=== PATIENT | female | born 1955 | race American Indian/Alaskan Native ===

== ENCOUNTER 2020-01-20 08:38 | Inpatient (IN) | payer OTHER ==
[2020-01-20] MEDS ORDERED: METOPROLOL TARTRATE 25 MG TAB ONE (13:53)
[2020-01-20] MEDS ORDERED: SODIUM BICARB 8.4% 50 MEQ/50 ML SYRINGE IV ONE (17:13)
[2020-01-20] MEDS ORDERED: hydrALAZINE 25 MG TAB ONE (17:13)
[2020-01-20] MEDS ORDERED: ASPIRIN 325 MG TAB ONE (17:13)
--- NOTE | 2020-01-20 20:52 | History and Physical Report ---
History of Present Illness Chief complaint: I just have not been feeling well and is hard to breathe History of present illness: 64 YO Female with HTN, MA, DM, CKD presents to ED for evaluation. Patient states that she has been "feeling sick" over the past 4 days. Patient states that she feels as if she is "being smothered". EMS was notified and upon arrival the patient was found to be in distress and subsequently transported to [facility] for further care and evaluation. Patient seen and evaluated in the emergency department. Lab and image studies reviewed. Patient was found to have hypertensive emergency with a blood pressure of 193/117, as well as acute kidney injury with acute tubular necrosis, metabolic acidosis. Nephrology team consulted in ED. Patient placed in observation status and admitted to medical floor. Renal ultrasound is ordered and pending at time of admission. Patient denies fever, chills, chest pain, palpitations, productive cough, skin rash, recent ill contacts, or known exposure to COVID-19. No prior admission for review. No medication listed at time of admission for reconciliation. Past History Past Medical History: acute MA, diabetes, hypertension, renal failure Past Surgical History: No surgical history, Other (Reviewed) Social history: single Family history: hypertension Medications and Allergies Allergies Allergy/AdvReac Type Severity Reaction Status Date / Time nifedipine Allergy Swelling Verified 01/20/20 19:55 Home Medications Medication Instructions Recorded Confirmed Last Taken Type No Known Home Medications [No 01/20/20 01/20/20 Unknown History Reported Home Medications] Review of Systems Constitutional: no weight loss, no weight gain, no chills Ears, nose, mouth and throat: no ear pain, no tinnitis, no decreased hearing, no nose pain, no nasal congestion Breasts: no change in shape Cardiovascular: no chest pain, no orthopnea, no palpitations, no edema Respiratory: shortness of breath, no cough with sputum Gastrointestinal: no nausea, no vomiting, no diarrhea, no constipation Genitourinary Female: no pelvic pain, no flank pain, no dysuria, no urinary frequency, no urgency Rectal: no pain, no incontinence, no bleeding Musculoskeletal: no neck stiffness, no shooting arm pain, no shooting leg pain Integumentary: no rash, no pruritis, no sores, no wounds, no boils Neurological: no head injury, no paralysis, no parathesias Psychiatric: no anxiety, no change in sleep habits, no insomnia, no change in libido Endocrine: no cold intolerance, no heat intolerance, no excessive thirst, no polydipsia, no polyuria Hematologic/Lymphatic: no easy bruising Allergic/Immunologic: no urticaria, no allergic rhinitis, no wheezing Exam - Constitutional Vitals: Temp Pulse Resp BP Pulse Ox 98.5 F 79 21 150/81 100 01/20/20 19:25 01/20/20 20:30 01/20/20 20:30 01/20/20 20:30 01/20/20 20:30 General appearance: Present: mild distress - EENT Eyes: Present: PERRL ENT: hearing intact, clear oral mucosa - Neck Neck: Present: supple, normal ROM - Respiratory Respiratory effort: normal Respiratory: bilateral: CTA - Cardiovascular Heart Sounds: Present: S1 & S2. Absent: rub, click - Extremities Extremities: pulses symmetrical, No edema Peripheral Pulses: within normal limits - Abdominal General gastrointestinal: Present: soft, non-tender, non-distended, normal bowel sounds Female genitourinary: Present: normal - Integumentary Integumentary: Present: clear, warm, dry - Musculoskeletal Musculoskeletal: gait normal, strength equal bilaterally - Psychiatric Psychiatric: appropriate mood/affect, intact judgment & insight - Neurologic Neurologic: CNII-XII intact, moves all extremities Assessment and Plan - Patient Problems (1) Acute kidney injury (KERMIT) with acute tubular necrosis (ATN) Current Visit: Yes Status: Acute Plan to address problem: IV fluid resuscitation therapy, monitor urine output every shift, strict I's/O, avoid nephrotoxic agents, nephrology team consulted in ED, bilateral renal ultrasound ordered and is pending at time of admission, urine sodium, urine creatinine. (2) Hypertensive emergency Current Visit: Yes Status: Acute Plan to address problem: Monitor blood pressure every shift, IV hydralazine every 6 hours as needed for systolic blood pressure greater than or equal to 155, supportive care. (3) Metabolic acidosis Current Visit: Yes Status: Acute Plan to address problem: IV bicarbonate therapy, BMP, repeat BMP in a.m. (4) Advance care planning Current Visit: Yes Status: Acute Plan to address problem: Disease education conducted, patient is full code, prognosis discussed, patient knowledges understanding and agreement with care plan. (5) Diabetes mellitus Current Visit: Yes Status: Acute Plan to address problem: Slight scale insulin therapy, Accu-Chek, hypoglycemia protocol, consistent carbohydrate diet. (6) DVT prophylaxis Current Visit: Yes Status: Acute Plan to address problem: SCD to bilateral lower extremities while in bed, patient is ambulatory.
[2020-01-20] MEDS ORDERED: ONDANSETRON 4 MG/2 ML INJ IV PRN (20:53)
[2020-01-20] MEDS ORDERED: ALBUTEROL 2.5 MG/3 ML NEBU IH PRN (20:53)
[2020-01-21] MEDS: ACETAMINOPHEN 325 MG TAB PO PRN (00:22)
[2020-01-21 07:44] LABS: Creatinine,Urine 97.8 mg/dL (0.1-20.0)
[2020-01-21 09:35] LABS: Calcium 8.5 mg/dL (8.4-10.2)
--- NOTE | 2020-01-21 12:36 | Consultation ---
History of Present Illness - Reason for Consult Consult date: 01/21/20 chronic renal failure - History of Present Illness This is a 64 year old female who presented to the E.R yesterday with a chief complaint of shortness of breath and not feeling well over the past 4 days. States feeling like she is drowning when she lays down on her back. On evaluation patient was in hypertensive Emergency state and serum creatinine was elevated at 6.0. Patient reports she saw a [employer] Machine Operator Helper in May and was told her creatinine was in the 3.0's at that time. States she never followed back up due to insurance issues and the pandemic. Patient reports that her mother and brother were on hemodialysis before they passed and that her sister and nephew are both currently on hemodialysis. States she had dialysis in 2017 when she was hospitalized at [facility] for heart attack per patient. Patient has history of Hypertension, Diabetes Mellitus and CKD. We are being consulted for management of this patient's severe renal failure. Past History Past Medical History: acute PR, diabetes, hypertension, renal failure Past Surgical History: No surgical history, Other (Reviewed) Social history: single Family history: hypertension Medications and Allergies Allergies Allergy/AdvReac Type Severity Reaction Status Date / Time nifedipine Allergy Swelling Verified 01/20/20 19:55 Home Medications Medication Instructions Recorded Confirmed Last Taken Type No Known Home Medications [No 01/20/20 01/20/20 Unknown History Reported Home Medications] Active Meds: Active Medications Acetaminophen (Tylenol) 650 mg PO Q4H PRN PRN Reason: Pain MILD(1-3)/Fever >100.5/SWENSON Last Admin: 01/21/20 00:22 Dose: 650 mg Documented by: Albuterol (Proventil) 2.5 mg IH Q4HRT PRN PRN Reason: Shortness Of Breath Ondansetron HCl (Zofran) 4 mg IV Q8H PRN PRN Reason: Nausea And Vomiting Sodium Chloride (Sodium Chloride Flush Syringe 10 Ml) 10 ml IV BID [facility] Last Admin: 01/21/20 11:22 Dose: 10 ml Documented by: Sodium Chloride (Sodium Chloride Flush Syringe 10 Ml) 10 ml IV PRN PRN PRN Reason: LINE FLUSH Review of Systems Constitutional: fatigue, no weight loss, no weight gain, no fever, no chills Ears, nose, mouth and throat: no ear pain, no ear discharge, no tinnitis, no decreased hearing, no nose pain Cardiovascular: orthopnea, shortness of breath, high blood pressure, no chest pain, no palpitations, no rapid/irregular heart beat, no edema, no syncope, no lightheadedness Respiratory: shortness of breath, no excessive sputum, no hemoptysis Gastrointestinal: no abdominal pain, no nausea, no vomiting, no diarrhea, no co nstipation, no change in bowel habits Musculoskeletal: no neck stiffness, no neck pain, no shooting arm pain, no arm numbness/tingling, no low back pain, no shooting leg pain Integumentary: no rash, no pruritis, no redness, no wounds, no jaundice Neurological: no head injury, no transient paralysis, no paralysis, no weakness, no numbness, no tingling Psychiatric: no memory loss, no change in sleep habits, no insomnia, no hypersomnia Exam - Vital Signs Vital signs: Vital Signs Temp Pulse Resp BP Pulse Ox 98.5 F 80 19 146/79 100 01/20/20 19:25 01/20/20 19:25 01/20/20 19:25 01/20/20 19:25 01/20/20 19:25 - General Appearance General appearance: well-developed, appears stated age, fatigue EENT: ATNC, PERRL, hearing intact, vision intact Neck: Present: neck supple, trachea midline Respiratory: Decreased Breath Sounds Heart: S1S2 Gastrointestinal: Present: normoactive bowel sounds Integumentary: warm and dry Neurologic: alert and oriented x3 Musculoskeletal: Present: other (No edema) Results - Lab Results 01/21/20 08:10 Most recent lab results Calcium 8.5 mg/dL (8.4-10.2) 01/21/20 08:10 Urine Creatinine 97.8 mg/dL (0.1-20.0) H 01/21/20 06:40 Urine Sodium 84 mmol/L 01/21/20 06:40 Assessment and Plan Assessment: Severe Renal Failure, possibly progressive CKD stage 5 secondary to HTN and DM, r/o obstruction S/P Hypertensive Emergency Hypertension Diabetes mellitus Plan: -Renal labs reviewed. Serum creatinine noted to be 6.0 today. Patient reports serum creatinine was in the 3.0's in May 2019 -States was on hemodialysis for 2 weeks in 2017 -On NS@ 75 ml/hr, monitor volume status -CXR-pending -Renal ultrasound ordered-pending -Obtain urine lytes, protein and eosinophil levels -Avoid nephrotoxic agents -Monitor I/O's -Renally dose medications -Obtain daily weights -Continue to monitor renal function closely, discussed with patient that given her advanced renal disease, risk factors and medical history, she will likely need hemodialysis in the very near future if renal function does not improve.
[2020-01-21] MEDS ORDERED: DEXTROSE 50% IN WATER (25GM) 50 ML SYRINGE IV PRN (16:48)
--- NOTE | 2020-01-21 16:55 | Progress Note ---
<RIANNA BARBOSA - Last Filed: 01/21/20 17:09> Assessment and Plan - Patient Problems (1) Acute kidney injury (KERMIT) with acute tubular necrosis (ATN) Current Visit: Yes Status: Acute Plan to address problem: Admitting creatinine 6 Nephrology consulted in the ED Renal ultrasound pending Per nephrology: Patient last saw auto bumper mechanic in May and told her creatinine was in the 3 range, states she had dialysis insulin 17 for 2 weeks Started on gentle IV hydration Avoid nephrotoxic medications Strict intake and output Daily weights (2) Hypertensive emergency Current Visit: Yes Status: Acute Plan to address problem: Presented to the ED with a blood pressure of 193/117 Blood pressure monitor per protocol 01/20 started on beta-alex (3) Diabetes mellitus Current Visit: Yes Status: Acute Plan to address problem: SSI CC renal diet Accu-Cheks AC at bedtime 01/20 Hemoglobin A1c pending (4) Metabolic acidosis Current Visit: Yes Status: Acute Plan to address problem: CO2 20 Gentle IV hydration Trend BMP (5) DVT prophylaxis Current Visit: Yes Status: Acute Plan to address problem: SCDs to bilateral lower extremities while in bed Heparin subcu History Interval history: 64 YO Female with HTN, HI, DM, CKD presented on 01/19 with complaint of "feeling sick" over the past 4 days and feeding "being smothered". Patient was found to have hypertensive emergency with a blood pressure of 193/117, severe renal disease with a creatinine of 6 and metabolic acidosis. Nephrology team consulted in ED. No acute events reported overnight. Patient seen by nephrology for further renal work-up and initiated on beta-alex for hypertension. Hospitalist Physical - Constitutional Vitals: Temp Pulse Resp BP Pulse Ox 98.5 F 80 20 164/95 99 01/21/20 05:15 01/21/20 05:15 01/21/20 05:15 01/21/20 05:15 01/21/20 09:10 General appearance: Present: no acute distress, mild distress - EENT Eyes: Present: PERRL, EOM intact ENT: hearing intact, clear oral mucosa - Neck Neck: Present: supple, normal ROM - Respiratory Respiratory effort: normal Respiratory: bilateral: diminished - Cardiovascular Rhythm: regular Heart Sounds: Present: S1 & S2. Absent: systolic murmur - Extremities Extremities: no ischemia, pulses intact, pulses symmetrical, No edema, normal temperature, normal color, Full ROM Peripheral Pulses: within normal limits - Abdominal General gastrointestinal: soft, non-tender, non-distended, normal bowel sounds - Integumentary Integumentary: Present: warm, dry - Psychiatric Psychiatric: cooperative - Neurologic Neurologic: CNII-XII intact, no focal deficits, moves all extremities Results - Labs CBC & Chem 7: 01/21/20 08:10 Labs: Laboratory Last Values Sodium 140 mmol/L (137-145) 01/21/20 08:10 Potassium 4.2 mmol/L (3.6-5.0) 01/21/20 08:10 Chloride 107.5 mmol/L (98-107) H 01/21/20 08:10 Carbon Dioxide 20 mmol/L (22-30) L 01/21/20 08:10 Anion Gap 17 mmol/L 01/21/20 08:10 BUN 46 mg/dL (7-17) H 01/21/20 08:10 Creatinine 6.0 mg/dL (0.6-1.2) H 01/21/20 08:10 Estimated GFR 9 ml/min 01/21/20 08:10 BUN/Creatinine Ratio 8 % 01/21/20 08:10 Glucose 116 mg/dL (65-100) H 01/21/20 08:10 Calcium 8.5 mg/dL (8.4-10.2) 01/21/20 08:10 Urine Creatinine 97.8 mg/dL (0.1-20.0) H 01/21/20 06:40 Urine Sodium 84 mmol/L 01/21/20 06:40 Thayer/IV: Voiding Method Toilet IV Catheter Type [Left Hand] INT / Saline Lock Active Medications - Current Medications Current Medications: Generic Name Dose Route Start Last Admin Trade Name Freq PRN Reason Stop Dose Admin Acetaminophen 650 mg 01/20/20 20:53 01/21/20 00:22 Tylenol PO 650 mg Q4H PRN Administration Pain MILD(1-3)/Fever >100.5/SWENSON Albuterol 2.5 mg 01/20/20 20:53 Proventil IH Q4HRT PRN Shortness Of Breath Dextrose 50 ml 01/21/20 16:48 D50w (25gm) Syringe IV Q30MIN PRN Hypoglycemia Protocol Sodium Chloride 1,000 mls @ 75 mls/hr 01/21/20 13:00 Nacl 0.9% 1000 Ml IV 01/23/20 02:19 DIRECT GERONIMO Insulin Human Lispro 0 unit 01/21/20 22:00 Humalog SUB-Q ACHS [facility] Protocol Metoprolol Tartrate 12.5 mg 01/21/20 22:00 Metoprolol PO BID GERONIMO Ondansetron HCl 4 mg 01/20/20 20:53 Zofran IV Q8H PRN Nausea And Vomiting Sodium Chloride 10 ml 01/20/20 22:00 01/21/20 11:22 Sodium Chloride Flush Syringe 10 Ml IV 10 ml BID GERONIMO Administration Sodium Chloride 10 ml 01/20/20 20:53 Sodium Chloride Flush Syringe 10 Ml IV PRN PRN LINE FLUSH <ISAIAS GEE - Last Filed: 01/22/20 07:23> Assessment and Plan Assessment and plan: I saw and evaluated the patient. I agree with the findings and the plan of care as documented in the Nurse Practitioner's~note, with the following corrections and additions. Hospitalist Physical - Constitutional Vitals: Temp Pulse Resp BP Pulse Ox 98.7 F 71 20 153/88 99 01/22/20 06:21 01/22/20 06:21 01/22/20 06:21 01/22/20 06:21 01/22/20 06:21 Results - Labs CBC & Chem 7: 01/21/20 08:10 Labs: Laboratory Last Values Sodium 140 mmol/L (137-145) 01/21/20 08:10 Potassium 4.2 mmol/L (3.6-5.0) 01/21/20 08:10 Chloride 107.5 mmol/L (98-107) H 01/21/20 08:10 Carbon Dioxide 20 mmol/L (22-30) L 01/21/20 08:10 Anion Gap 17 mmol/L 01/21/20 08:10 BUN 46 mg/dL (7-17) H 01/21/20 08:10 Creatinine 6.0 mg/dL (0.6-1.2) H 01/21/20 08:10 Estimated GFR 9 ml/min 01/21/20 08:10 BUN/Creatinine Ratio 8 % 01/21/20 08:10 Glucose 116 mg/dL (65-100) H 01/21/20 08:10 POC Glucose 141 mg/dL (70-105) H 01/21/20 23:36 Hemoglobin A1c 6.2 % (4-6) H 01/21/20 20:43 Calcium 8.5 mg/dL (8.4-10.2) 01/21/20 08:10 Urine Eosinophils >5% (None Seen) 01/22/20 01:00 Urine Creatinine 115.9 mg/dL (0.1-20.0) H 01/22/20 01:00 Protein/Creatinin Ratio 1.28 01/22/20 01:00 Urine Sodium 84 mmol/L 01/21/20 06:40 Urine Total Protein 148 mg/dL (5-11.8) H 01/22/20 01:00 Thayer/IV: Voiding Method Toilet IV Catheter Type [Left Hand] INT / Saline Lock Active Medications - Current Medications Current Medications: Generic Name Dose Route Start Last Admin Trade Name Freq PRN Reason Stop Dose Admin Acetaminophen 650 mg 01/20/20 20:53 01/21/20 00:22 Tylenol PO 650 mg Q4H PRN Administration Pain MILD(1-3)/Fever >100.5/SWENSON Albuterol 2.5 mg 01/20/20 20:53 Proventil IH Q4HRT PRN Shortness Of Breath Dextrose 50 ml 01/21/20 16:48 D50w (25gm) Syringe IV Q30MIN PRN Hypoglycemia Protocol Heparin Sodium (Porcine) 5,000 unit 01/21/20 22:00 01/21/20 22:29 Heparin SUB-Q 5,000 unit Q12HR GERONIMO Administration Sodium Chloride 1,000 mls @ 75 mls/hr 01/21/20 13:00 01/22/20 06:27 Nacl 0.9% 1000 Ml IV 01/23/20 02:19 75 mls/hr DIRECT GERONIMO Administration Insulin Human Lispro 0 unit 01/21/20 17:00 Humalog SUB-Q ACHS GERONIMO Protocol Metoprolol Tartrate 12.5 mg 01/21/20 22:00 01/21/20 22:29 Metoprolol PO 12.5 mg BID GERONIMO Administration Ondansetron HCl 4 mg 01/20/20 20:53 Zofran IV Q8H PRN Nausea And Vomiting Sodium Chloride 10 ml 01/20/20 22:00 01/21/20 22:30 Sodium Chloride Flush Syringe 10 Ml IV 10 ml BID GERONIMO Administration Sodium Chloride 10 ml 01/20/20 20:53 Sodium Chloride Flush Syringe 10 Ml IV PRN PRN LINE FLUSH
[2020-01-21] MEDS: SODIUM CHLORIDE 0.9% 1000 ML 1,000 ML IV SCH (17:08)
[2020-01-21] MEDS: HEPARIN 5,000 UNIT/1 ML VIAL SUB-Q SCH (22:29)
[2020-01-21] MEDS: METOPROLOL TARTRATE 25 MG TAB PO SCH (22:29)
[2020-01-22 03:18] LABS: Creatinine,Urine 115.9 mg/dL (0.1-20.0); Protein/Creatinine Ratio,Urine 1.28
[2020-01-22] MEDS: SODIUM CHLORIDE 0.9% 1000 ML 1,000 ML IV SCH (06:27)
[2020-01-22] MEDS: INSULIN LISPRO 100 UNIT/ML VIAL 3 mL SUB-Q SCH ×4 (07:59→22:10)
[2020-01-22 08:24] LABS: Hematocrit 33.5 % (30.3-42.9); Hemoglobin 10.7 gm/dl (10.1-14.3); Mean Corpuscular HGB Conc 32 % (30-34); Mean Corpuscular Volume 91 fl (79-97); Platelet Count 189 K/mm3 (140-440); Red Blood Count 3.67 M/mm3 (3.65-5.03)
[2020-01-22 08:55] LABS: Calcium 8.2 mg/dL (8.4-10.2)
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
[2020-01-22 10:36] LABS: Hepatitis B Surface Antigen Non-Reactive (Negative); Hepatitis C Virus Antibody Non-Reactive (NonReactive)
[2020-01-22] MEDS: METOPROLOL TARTRATE 25 MG TAB PO SCH ×2 (10:54→22:07)
[2020-01-22] MEDS: HEPARIN 5,000 UNIT/1 ML VIAL SUB-Q SCH ×2 (10:55→22:08)
--- NOTE | 2020-01-22 13:48 | Progress Note ---
Assessment and Plan Severe Renal Failure, possibly progressive CKD stage 5 secondary to HTN and DM, r/o obstruction S/P Hypertensive Emergency Hypertension Diabetes mellitus Plan: -stable kidney function -States was on hemodialysis for 2 weeks in 2017 -will d/c NS -zohra start Bicitra 30 TID for metabolic acidosis -Avoid nephrotoxic agents -Monitor I/O's -Renally dose medications -Obtain daily weights -Continue to monitor renal function closely, discussed with patient that given her advanced renal disease, risk factors and medical history, she will likely need hemodialysis in the very near future if renal function does not improve. Subjective Date of service: 01/22/20 Principal diagnosis: CKD stage V Interval history: weak but comfortable Objective - Vital Signs Vital signs: Vital Signs - 12hr 01/22/20 01/22/20 06:21 10:54 Temperature 98.7 F Pulse Rate 71 75 Respiratory 20 Rate Blood Pressure 153/88 152/105 O2 Sat by Pulse 99 Oximetry - General Appearance General appearance: well-developed, well-nourished, appears stated age EENT: ATNC, PERRL, mucous membranes moist Neck: no JVD, no carotid bruit Respiratory: Present: Clear to Ascultation. Absent: Rales, Ronchi Cardiology: regular, S1S2 Gastrointestinal: normoactive bowel sounds, no tenderness, no distended Integumentary: no rash, warm and dry Neurologic: no focal deficit, no asterixis, alert and oriented x3 Musculoskeletal: other (no edema in BLE) Psychiatric: mood/affect appropriate, cooperative - Lab 01/22/20 08:00 01/22/20 08:00 Most recent lab results Calcium 8.2 mg/dL (8.4-10.2) L 01/22/20 08:00 Phosphorus 3.20 mg/dL (2.5-4.5) 01/22/20 08:00 Urine Creatinine 115.9 mg/dL (0.1-20.0) H 01/22/20 01:00 Urine Sodium 84 mmol/L 01/21/20 06:40 Urine Total Protein 148 mg/dL (5-11.8) H 01/22/20 01:00 Medications & Allergies - Medications Allergies/Adverse Reactions: Allergies nifedipine Allergy (Verified 01/20/20 19:55) Swelling Home Medications: Home Medications Medication Instructions Recorded Confirmed Last Taken Type No Known Home Medications [No 01/20/20 01/20/20 Unknown History Reported Home Medications] Active Medications: Generic Name Dose Route Start Last Admin Trade Name Freq PRN Reason Stop Dose Admin Acetaminophen 650 mg 01/20/20 20:53 01/21/20 00:22 Tylenol PO 650 mg Q4H PRN Administration Pain MILD(1-3)/Fever >100.5/SWENSON Albuterol 2.5 mg 01/20/20 20:53 Proventil IH Q4HRT PRN Shortness Of Breath Dextrose 50 ml 01/21/20 16:48 D50w (25gm) Syringe IV Q30MIN PRN Hypoglycemia Protocol Heparin Sodium (Porcine) 5,000 unit 01/21/20 22:00 01/22/20 10:55 Heparin SUB-Q 5,000 unit Q12HR GERONIMO Administration Hydralazine HCl 50 mg 01/22/20 14:00 Apresoline PO Q8HR GERONIMO Sodium Chloride 1,000 mls @ 75 mls/hr 01/21/20 13:00 01/22/20 06:27 Nacl 0.9% 1000 Ml IV 01/23/20 02:19 75 mls/hr DIRECT GERONIMO Administration Insulin Human Lispro 0 unit 01/21/20 17:00 01/22/20 13:45 Humalog SUB-Q Not Given ACHS GERONIMO Protocol Metoprolol Tartrate 12.5 mg 01/21/20 22:00 01/22/20 10:54 Metoprolol PO 12.5 mg BID GERONIMO Administration Ondansetron HCl 4 mg 01/20/20 20:53 Zofran IV Q8H PRN Nausea And Vomiting Sodium Chloride 10 ml 01/20/20 22:00 01/22/20 10:56 Sodium Chloride Flush Syringe 10 Ml IV 10 ml BID GERONIMO Administration Sodium Chloride 10 ml 01/20/20 20:53 Sodium Chloride Flush Syringe 10 Ml IV PRN PRN LINE FLUSH
[2020-01-22] MEDS: hydrALAZINE 25 MG TAB PO SCH ×2 (14:09→22:08)
--- NOTE | 2020-01-22 15:06 | Progress Note ---
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 and told her creatinine was in the 3 range, states she had dialysis in 2017 for 2 weeks Started on gentle IV hydration, which was discontinued on 01/21 Avoid nephrotoxic medications Strict intake and output Daily weights 01/20 calculated FENa from urine studies is greater than 3%, consistent with prerenal cause (3) Hypertensive emergency Current Visit: Yes Status: Acute Plan to address problem: Presented to the ED with a blood pressure of 193/117 Blood pressure monitor per protocol 01/20 started on beta-alex 01/21 given complaints of feeling "strangled when laying down" she was started on hydralazine 50 every 8 01/21 echocardiogram ordered given history of UT (4) Diabetes mellitus Current Visit: Yes Status: Acute Plan to address problem: SSI CC renal diet Accu-Cheks AC at bedtime 01/20 Hemoglobin A1c 6.2 (5) Metabolic acidosis Current Visit: Yes Status: Acute Plan to address problem: CO2 20, 01/21 CO2 16 Gentle IV hydration, DC 01/21 Trend BMP Started on Bicitra 30 TID for metabolic acidosis by nephrology on 01/21 (6) DVT prophylaxis Current Visit: Yes Status: Acute Plan to address problem: SCDs to bilateral lower extremities while in bed Heparin subcu History Interval history: 64 YO Female with HTN, UT, DM, CKD presented on 01/19 with complaint of "feeling sick" over the past 4 days and feeding "being smothered". Patient was found to have hypertensive emergency with a blood pressure of 193/117, severe renal disease with a creatinine of 6 and metabolic acidosis. Nephrology team consulted in ED. Patient reports feeling " like something smothering me when I lay down" patient was started on an afterload reduction today and an echocardiogram was ordered. 01/20: renal US pending, urine studies ordered, initiated BB Hospitalist Physical - Constitutional Vitals: Temp Pulse Resp BP Pulse Ox 98.7 F 75 20 152/105 99 01/22/20 06:21 01/22/20 10:54 01/22/20 06:21 01/22/20 10:54 01/22/20 06:21 General appearance: Present: no acute distress, mild distress, obese - EENT Eyes: Present: PERRL, EOM intact ENT: hearing intact, clear oral mucosa - Neck Neck: Present: supple, normal ROM - Respiratory Respiratory effort: normal Respiratory: bilateral: other (Fine crackles) - Cardiovascular Rhythm: regular Heart Sounds: Present: S1 & S2. Absent: systolic murmur, diastolic murmur - Extremities Extremities: no ischemia, pulses intact, pulses symmetrical, No edema, normal temperature, normal color, Full ROM Peripheral Pulses: within normal limits - Abdominal General gastrointestinal: soft, non-tender, non-distended, normal bowel sounds - Integumentary Integumentary: Present: clear, warm, dry - Psychiatric Psychiatric: appropriate mood/affect, cooperative - Neurologic Neurologic: CNII-XII intact, no focal deficits, moves all extremities - Allied Health Allied health notes reviewed: nursing Results - Labs CBC & Chem 7: 01/22/20 08:00 01/22/20 08:00 Labs: Laboratory Last Values WBC 6.0 K/mm3 (4.5-11.0) 01/22/20 08:00 RBC 3.67 M/mm3 (3.65-5.03) 01/22/20 08:00 Hgb 10.7 gm/dl (10.1-14.3) 01/22/20 08:00 Hct 33.5 % (30.3-42.9) 01/22/20 08:00 MCV 91 fl (79-97) 01/22/20 08:00 MCH 29 pg (28-32) 01/22/20 08:00 MCHC 32 % (30-34) 01/22/20 08:00 RDW 16.0 % (13.2-15.2) H 01/22/20 08:00 Plt Count 189 K/mm3 (140-440) 01/22/20 08:00 Sodium 137 mmol/L (137-145) 01/22/20 08:00 Potassium 4.7 mmol/L (3.6-5.0) 01/22/20 08:00 Chloride 107.9 mmol/L (98-107) H 01/22/20 08:00 Carbon Dioxide 16 mmol/L (22-30) L 01/22/20 08:00 Anion Gap 18 mmol/L 01/22/20 08:00 BUN 45 mg/dL (7-17) H 01/22/20 08:00 Creatinine 5.5 mg/dL (0.6-1.2) H 01/22/20 08:00 Estimated GFR 9 ml/min 01/22/20 08:00 BUN/Creatinine Ratio 8 % 01/22/20 08:00 Glucose 167 mg/dL (65-100) H 01/22/20 08:00 POC Glucose 133 mg/dL (70-105) H 01/22/20 11:22 Hemoglobin A1c 6.2 % (4-6) H 01/21/20 20:43 Calcium 8.2 mg/dL (8.4-10.2) L 01/22/20 08:00 Phosphorus 3.20 mg/dL (2.5-4.5) 01/22/20 08:00 PTH Intact 1332 pg/mL (15-65) H 01/22/20 08:00 Urine Eosinophils >5% (None Seen) 01/22/20 01:00 Urine Creatinine 115.9 mg/dL (0.1-20.0) H 01/22/20 01:00 Protein/Creatinin Ratio 1.28 01/22/20 01:00 Urine Sodium 84 mmol/L 01/21/20 06:40 Urine Total Protein 148 mg/dL (5-11.8) H 01/22/20 01:00 Hepatitis A IgM Ab Non-reactive (NonReactive) 01/22/20 08:00 Hep Bs Antigen Non-reactive (Negative) 01/22/20 08:00 Hep B Core IgM Ab Non-reactive (NonReactive) 01/22/20 08:00 Hepatitis C Antibody Non-reactive (NonReactive) 01/22/20 08:00 Thayer/IV: Voiding Method Toilet IV Catheter Type [Left Hand] INT / Saline Lock Active Medications - Current Medications Current Medications: Generic Name Dose Route Start Last Admin Trade Name Freq PRN Reason Stop Dose Admin Acetaminophen 650 mg 01/20/20 20:53 01/21/20 00:22 Tylenol PO 650 mg Q4H PRN Administration Pain MILD(1-3)/Fever >100.5/SWENSON Albuterol 2.5 mg 01/20/20 20:53 Proventil IH Q4HRT PRN Shortness Of Breath Citric Acid/Sodium Citrate 30 ml 01/22/20 14:00 Bicitra PO TID GERONIMO Dextrose 50 ml 01/21/20 16:48 D50w (25gm) Syringe IV Q30MIN PRN Hypoglycemia Protocol Heparin Sodium (Porcine) 5,000 unit 01/21/20 22:00 01/22/20 10:55 Heparin SUB-Q 5,000 unit Q12HR GERONIMO Administration Hydralazine HCl 50 mg 01/22/20 14:00 01/22/20 14:09 Apresoline PO 50 mg Q8HR GERONIMO Administration Insulin Human Lispro 0 unit 01/21/20 17:00 01/22/20 13:45 Humalog SUB-Q Not Given ACHS GERONIMO Protocol Metoprolol Tartrate 12.5 mg 01/21/20 22:00 01/22/20 10:54 Metoprolol PO 12.5 mg BID GERONIMO Administration Ondansetron HCl 4 mg 01/20/20 20:53 Zofran IV Q8H PRN Nausea And Vomiting Sodium Chloride 10 ml 01/20/20 22:00 01/22/20 10:56 Sodium Chloride Flush Syringe 10 Ml IV 10 ml BID GERONIMO Administration Sodium Chloride 10 ml 01/20/20 20:53 Sodium Chloride Flush Syringe 10 Ml IV PRN PRN LINE FLUSH <ISAIAS GEE - Last Filed: 01/23/20 17:44> Assessment and Plan Assessment and plan: I saw and evaluated the patient. I agree with the findings and the plan of care as documented in the Nurse Practitioner's~note, with the following corrections and additions. Hospitalist Physical - Constitutional Vitals: Temp Pulse Resp BP Pulse Ox 97.5 F L 84 16 132/72 100 01/23/20 15:00 01/23/20 17:30 01/23/20 15:00 01/23/20 17:30 01/23/20 11:56 Results - Labs CBC & Chem 7: 01/22/20 08:00 01/23/20 07:35 Labs: Laboratory Last Values WBC 6.0 K/mm3 (4.5-11.0) 01/22/20 08:00 RBC 3.67 M/mm3 (3.65-5.03) 01/22/20 08:00 Hgb 10.7 gm/dl (10.1-14.3) 01/22/20 08:00 Hct 33.5 % (30.3-42.9) 01/22/20 08:00 MCV 91 fl (79-97) 01/22/20 08:00 MCH 29 pg (28-32) 01/22/20 08:00 MCHC 32 % (30-34) 01/22/20 08:00 RDW 16.0 % (13.2-15.2) H 01/22/20 08:00 Plt Count 189 K/mm3 (140-440) 01/22/20 08:00 Sodium 138 mmol/L (137-145) 01/23/20 07:35 Potassium 4.6 mmol/L (3.6-5.0) 01/23/20 07:35 Chloride 104.5 mmol/L (98-107) 01/23/20 07:35 Carbon Dioxide 21 mmol/L (22-30) L 01/23/20 07:35 Anion Gap 17 mmol/L 01/23/20 07:35 BUN 46 mg/dL (7-17) H 01/23/20 07:35 Creatinine 5.7 mg/dL (0.6-1.2) H 01/23/20 07:35 Estimated GFR 9 ml/min 01/23/20 07:35 BUN/Creatinine Ratio 8 % 01/23/20 07:35 Glucose 107 mg/dL (65-100) H 01/23/20 07:35 POC Glucose 157 mg/dL (70-105) H 01/23/20 17:28 Hemoglobin A1c 6.2 % (4-6) H 01/21/20 20:43 Calcium 8.6 mg/dL (8.4-10.2) 01/23/20 07:35 Phosphorus 3.20 mg/dL (2.5-4.5) 01/22/20 08:00 NT-Pro-B Natriuret Pep 05282 pg/mL (0-900) H 01/22/20 08:00 PTH Intact 1332 pg/mL (15-65) H 01/22/20 08:00 Urine Eosinophils >5% (None Seen) 01/22/20 01:00 Urine Creatinine 115.9 mg/dL (0.1-20.0) H 01/22/20 01:00 Protein/Creatinin Ratio 1.28 01/22/20 01:00 Urine Sodium 84 mmol/L 01/21/20 06:40 Urine Total Protein 148 mg/dL (5-11.8) H 01/22/20 01:00 Hepatitis A IgM Ab Non-reactive (NonReactive) 01/22/20 08:00 Hep Bs Antigen Non-reactive (Negative) 01/22/20 08:00 Hep B Core IgM Ab Non-reactive (NonReactive) 01/22/20 08:00 Hepatitis C Antibody Non-reactive (NonReactive) 01/22/20 08:00 - Diagnostic Impressions Diagnostic Impressions: Echocardiogram 01/22/20 11:18 Transthoracic Echocardiogram Indication: SOB BP: 152/105 HR: 69 Conclusions *The left ventricular chamber size is severely dilated. *Mild to moderate concentric left ventricular hypertrophy is observed. *Global left ventricular systolic function is severely decreased. *The estimated ejection fraction is 15-20%. *The left atrium is moderately dilated. *There is moderate to severe mitral regurgitation. *There is mild tricuspid regurgitation. *There is evidence of moderate pulmonary hypertension. *The right ventricular systolic pressure is calculated at 48 mmHg. Findings Left Ventricle: The left ventricular chamber size is severely dilated. Mild to moderate concentric left ventricular hypertrophy is observed. Global left ventricular systolic function is severely decreased. The estimated ejection fraction is 15-20%. Left Atrium: The left atrium is moderately dilated. Right Ventricle: The right ventricular cavity size is normal. The right ventricular global systolic function is normal. Right Atrium: The right atrial cavity size is normal. Aortic Valve: The aortic valve is trileaflet. The aortic valve leaflets are moderately thickened. There is trace of aortic regurgitation. There is no evidence of aortic stenosis. Mitral Valve: The mitral valve leaflets are mildly thickened. There is moderate to severe mitral regurgitation. There is no evidence of mitral stenosis. Tricuspid Valve: There is mild tricuspid regurgitation. The right ventricular systolic pressure is calculated at 48 mmHg. There is evidence of moderate pulmonary hypertension. Pulmonic Valve: There is mild pulmonic regurgitation. Pericardium: There is no pericardial effusion. Aorta: There is no dilatation of the ascending aorta. There is no dilatation of the aortic root. Venous: The inferior vena cava appears normal in size. Measurements Chambers 2D Name Value Normal Range IVSd (2D) 1.12 cm (0.6 - 1.1) LVPWd (2D) 1.17 cm (0.6 - 1.1) LVIDd (2D) 5.92 cm (3.7 - 5.6) LVIDs (2D) 4.89 cm (2 - 3.8) LV FS (2D) 17.48 % - EF Teichholz (2D) 35.83 % - Ao root diameter (2D) 3.05 cm (2 - 3.7) Volumes/Mass Name Value Normal Range LA ESV SP 4CH (A/L) 60.53 ml - LA ESV SP 2CH (A/L) 81.81 ml - LA ESV BP (A/L) 73.51 ml - LA ESV BP (A/L) index 39.31 ml/m2 - LA ESV SP 4CH (MOD) 57.3 ml - LA ESV SP 2CH (MOD) 76.37 ml - LA ESV BP (MOD) 68.95 ml - LA ESV BP (MOD) index 36.87 ml/m2 - Diastolic/Systolic Function Name Value Normal Range MV E-wave Vmax 0.9 m/sec - MV deceleration time 181.16 msec - MV A-wave Vmax 0.82 m/sec - MV E:A ratio 1.09 ratio - Aortic Valve Name Value Normal Range AV Vmax 1.5 m/sec - AV VTI 26.98 cm - AV peak gradient 8.99 mmHg - AV mean gradient 4.78 mmHg - LVOT diameter 2.01 cm - LVOT Vmax 0.78 m/sec - LVOT VTI 15.26 cm - LVOT peak gradient 2.43 mmHg - LVOT mean gradient 1.57 mmHg - SV LVOT 48.18 ml - ANABELLA (continuity Vmax) 1.64 cm2 - ANABELLA (continuity VTI) 1.79 cm2 - Mitral Valve Name Value Normal Range MR Vmax 5.58 m/sec - MR VTI 196.54 cm - Tricuspid Valve Name Value Normal Range TR Vmax 3.18 m/sec - TR peak gradient 40 mmHg - RAP 3 mmHg - RVSP 48 mmHg - IVC diameter 2.12 cm (1.2 - 2.3) Pulmonic Valve/Qp:Qs Name Value Normal Range PV Vmax 0.77 m/sec - PV peak gradient 2.35 mmHg - DE end-diastolic Vmax 1.29 m/sec - PV acceleration time 87.54 msec - Thayer/IV: Voiding Method Toilet IV Catheter Type [Left Hand] INT / Saline Lock Active Medications - Current Medications Current Medications: Generic Name Dose Route Start Last Admin Trade Name Freq PRN Reason Stop Dose Admin Acetaminophen 650 mg 01/20/20 20:53 01/23/20 15:05 Tylenol PO 650 mg Q4H PRN Administration Pain MILD(1-3)/Fever >100.5/SWENSON Albuterol 2.5 mg 01/20/20 20:53 Proventil IH Q4HRT PRN Shortness Of Breath Aspirin 81 mg 01/23/20 14:00 01/23/20 15:05 Halfprin Ec PO 81 mg QDAY GERONIMO Administration Carvedilol 6.25 mg 01/23/20 14:00 01/23/20 17:30 Coreg PO 6.25 mg BID GERONIMO Administration Citric Acid/Sodium Citrate 30 ml 01/22/20 14:00 01/23/20 15:05 Bicitra PO 30 ml TID GERONIMO Administration Dextrose 50 ml 01/21/20 16:48 D50w (25gm) Syringe IV Q30MIN PRN Hypoglycemia Protocol Furosemide 20 mg 01/23/20 15:00 01/23/20 15:30 Lasix IV 20 mg DAILY@0600 GERONIMO Administration Heparin Sodium (Porcine) 5,000 unit 01/21/20 22:00 01/23/20 10:22 Heparin SUB-Q 5,000 unit Q12HR GERONIMO Administration Milrinone Lactate/Dextrose 20 mg in 100 mls @ 9.169 mls/hr 01/23/20 15:00 Milrinone-D5w 20 Mg/100 Ml IV 01/26/20 14:59 TITR GERONIMO 0.375 MCG/KG/MIN Insulin Human Lispro 0 unit 01/21/20 17:00 01/23/20 17:30 Humalog SUB-Q Not Given ACHS GERONIMO Protocol Isosorbide Dinitrate 20 mg 01/23/20 14:00 01/23/20 17:30 Isordil PO 20 mg Q8HR GERONIMO Administration Ondansetron HCl 4 mg 01/20/20 20:53 01/23/20 03:23 Zofran IV 4 mg Q8H PRN Administration Nausea And Vomiting Sodium Chloride 10 ml 01/20/20 22:00 01/23/20 10:23 Sodium Chloride Flush Syringe 10 Ml IV 10 ml BID GERONIMO Administration Sodium Chloride 10 ml 01/20/20 20:53 Sodium Chloride Flush Syringe 10 Ml IV PRN PRN LINE FLUSH
[2020-01-22] MEDS: BICITRA ORAL LIQD 30ML PO SCH ×2 (15:47→20:52)
[2020-01-23] MEDS: ACETAMINOPHEN 325 MG TAB PO PRN ×2 (03:22→15:05)
[2020-01-23] MEDS: hydrALAZINE 25 MG TAB PO SCH ×2 (05:30→15:05)
[2020-01-23 08:40] LABS: Calcium 8.6 mg/dL (8.4-10.2)
[2020-01-23] MEDS: BICITRA ORAL LIQD 30ML PO SCH ×3 (08:51→22:55)
[2020-01-23] MEDS: INSULIN LISPRO 100 UNIT/ML VIAL 3 mL SUB-Q SCH ×4 (08:52→22:55)
--- NOTE | 2020-01-23 09:41 | Consultation ---
History of Present Illness Consult date: 01/23/20 Consult reason: congestive heart failure History of present illness: This is a 64-year old F who is admitted with shortness of breath, volume ove rload and renal insufficiency with a creatinine of 6.0 on presentation. Nephrology is following but there are no plans for dialysis. A cardiac consultation has been requested for CHF. Patient reports progressive shortness of breath. Denies chest pain, denies palpitations and denies lower extremity. There was no syncope. Chest x-ray reports no evidence of interstitial edema. ECG shows sinus rhythm, PACs, with a left bundle branch block. There is no prior ECG available for comparison. In 2017, patient was hospitalized at [facility] for chronic kidney disease and received transient dialysis. She also had a lexiscan thallium stress test that reports breast attenuation, no reversible ischemia with an ejection fraction of 73%. Co-morbidities includes hypertension and diabetes. She is not taking any medications and has not seen a physician in several months due to lack of insurance. Past History Past Medical History: diabetes, hypertension, renal failure Social history: single Family history: hypertension Medications and Allergies Allergies Allergy/AdvReac Type Severity Reaction Status Date / Time nifedipine Allergy Swelling Verified 01/20/20 19:55 Home Medications Medication Instructions Recorded Confirmed Last Taken Type No Known Home Medications [No 01/20/20 01/20/20 Unknown History Reported Home Medications] Active Meds: Active Medications Acetaminophen (Tylenol) 650 mg PO Q4H PRN PRN Reason: Pain MILD(1-3)/Fever >100.5/SWENSON Last Admin: 01/23/20 03:22 Dose: 650 mg Documented by: Albuterol (Proventil) 2.5 mg IH Q4HRT PRN PRN Reason: Shortness Of Breath Citric Acid/Sodium Citrate (Bicitra) 30 ml PO TID GERONIMO Last Admin: 01/23/20 08:51 Dose: 30 ml Documented by: Dextrose (D50w (25gm) Syringe) 50 ml IV Q30MIN PRN; Protocol PRN Reason: Hypoglycemia Heparin Sodium (Porcine) (Heparin) 5,000 unit SUB-Q Q12HR GERONIMO Last Admin: 01/22/20 22:08 Dose: 5,000 unit Documented by: Hydralazine HCl (Apresoline) 50 mg PO Q8HR GERONIMO Last Admin: 01/23/20 05:30 Dose: 50 mg Documented by: Insulin Human Lispro (Humalog) 0 unit SUB-Q [facility]S [facility]; Protocol Last Admin: 01/23/20 08:52 Dose: Not Given Documented by: Metoprolol Tartrate (Metoprolol) 12.5 mg PO BID [facility] Last Admin: 01/22/20 22:07 Dose: 12.5 mg Documented by: Ondansetron HCl (Zofran) 4 mg IV Q8H PRN PRN Reason: Nausea And Vomiting Last Admin: 01/23/20 03:23 Dose: 4 mg Documented by: Sodium Chloride (Sodium Chloride Flush Syringe 10 Ml) 10 ml IV BID [facility] Last Admin: 01/22/20 22:10 Dose: 10 ml Documented by: Sodium Chloride (Sodium Chloride Flush Syringe 10 Ml) 10 ml IV PRN PRN PRN Reason: LINE FLUSH Physical Examination Vital Signs Temp Pulse Resp BP Pulse Ox 98.5 F 80 19 146/79 100 01/20/20 19:25 01/20/20 19:25 01/20/20 19:25 01/20/20 19:25 01/20/20 19:25 General appearance: no acute distress HEENT: Positive: PERRL Neck: Positive: trachea midline Cardiac: Positive: Reg Rate and Rhythm Neuro: Positive: Grossly Intact Extremities: Absent: edema Results 01/22/20 08:00 01/23/20 07:35 Comprehensive Metabolic Panel 01/23/20 Range/Units 07:35 Sodium 138 (137-145) mmol/L Potassium 4.6 (3.6-5.0) mmol/L Chloride 104.5 (98-107) mmol/L Carbon Dioxide 21 L (22-30) mmol/L BUN 46 H (7-17) mg/dL Creatinine 5.7 H (0.6-1.2) mg/dL Glucose 107 H (65-100) mg/dL Calcium 8.6 (8.4-10.2) mg/dL Assessment and Plan Volume overload Chronic kidney disease Hypertension Diabetes LBBB, uncertain chronicity Will obtain an echocardiogram for LVEF assessment.
--- NOTE | 2020-01-23 09:52 | Progress Note ---
Assessment and Plan Severe Renal Failure, possibly progressive CKD stage 5 secondary to HTN and DM, r/o obstruction S/P Hypertensive Emergency Hypertension Diabetes mellitus Plan: -nio indication for HD -cont Bicitra 30 TID for metabolic acidosis -Avoid nephrotoxic agents -Monitor I/O's -Renally dose medications -Obtain daily weights - can be discharged from renal standpoint, to be followed in 1-2 weeks in office Subjective Date of service: 01/23/20 Principal diagnosis: CKD stage V Interval history: breathing is better Objective - Vital Signs Vital signs: Vital Signs - 12hr 01/22/20 01/22/20 01/22/20 22:00 22:07 22:08 Temperature Pulse Rate 77 77 Respiratory Rate Blood Pressure 142/85 142/85 O2 Sat by Pulse 98 Oximetry 01/23/20 01/23/20 01/23/20 03:22 04:22 04:45 Temperature 97.9 F Pulse Rate 67 Respiratory 20 18 18 Rate Blood Pressure 138/83 O2 Sat by Pulse 100 Oximetry 01/23/20 05:30 Temperature Pulse Rate 67 Respiratory Rate Blood Pressure 138/8 O2 Sat by Pulse Oximetry - General Appearance General appearance: well-developed, well-nourished EENT: ATNC, PERRL Neck: no JVD, no carotid bruit Respiratory: Present: Decreased Breath Sounds Cardiology: regular, S1S2 Gastrointestinal: normoactive bowel sounds Integumentary: no rash, warm and dry Neurologic: no focal deficit Psychiatric: cooperative - Lab 01/22/20 08:00 01/23/20 07:35 Most recent lab results Calcium 8.6 mg/dL (8.4-10.2) 01/23/20 07:35 Phosphorus 3.20 mg/dL (2.5-4.5) 01/22/20 08:00 Urine Creatinine 115.9 mg/dL (0.1-20.0) H 01/22/20 01:00 Urine Sodium 84 mmol/L 01/21/20 06:40 Urine Total Protein 148 mg/dL (5-11.8) H 01/22/20 01:00 Medications & Allergies - Medications Allergies/Adverse Reactions: Allergies nifedipine Allergy (Verified 01/20/20 19:55) Swelling Home Medications: Home Medications Medication Instructions Recorded Confirmed Last Taken Type No Known Home Medications [No 01/20/20 01/20/20 Unknown History Reported Home Medications] Active Medications: Generic Name Dose Route Start Last Admin Trade Name Freq PRN Reason Stop Dose Admin Acetaminophen 650 mg 01/20/20 20:53 01/23/20 03:22 Tylenol PO 650 mg Q4H PRN Administration Pain MILD(1-3)/Fever >100.5/SWENSON Albuterol 2.5 mg 01/20/20 20:53 Proventil IH Q4HRT PRN Shortness Of Breath Citric Acid/Sodium Citrate 30 ml 01/22/20 14:00 01/23/20 08:51 Bicitra PO 30 ml TID GERONIMO Administration Dextrose 50 ml 01/21/20 16:48 D50w (25gm) Syringe IV Q30MIN PRN Hypoglycemia Protocol Heparin Sodium (Porcine) 5,000 unit 01/21/20 22:00 01/22/20 22:08 Heparin SUB-Q 5,000 unit Q12HR GERONIMO Administration Hydralazine HCl 50 mg 01/22/20 14:00 01/23/20 05:30 Apresoline PO 50 mg Q8HR GERONIMO Administration Insulin Human Lispro 0 unit 01/21/20 17:00 01/23/20 08:52 Humalog SUB-Q Not Given ACHS GERONIMO Protocol Metoprolol Tartrate 12.5 mg 01/21/20 22:00 01/22/20 22:07 Metoprolol PO 12.5 mg BID GERONIMO Administration Ondansetron HCl 4 mg 01/20/20 20:53 01/23/20 03:23 Zofran IV 4 mg Q8H PRN Administration Nausea And Vomiting Sodium Chloride 10 ml 01/20/20 22:00 01/22/20 22:10 Sodium Chloride Flush Syringe 10 Ml IV 10 ml BID GERONIMO Administration Sodium Chloride 10 ml 01/20/20 20:53 Sodium Chloride Flush Syringe 10 Ml IV PRN PRN LINE FLUSH
[2020-01-23] MEDS: METOPROLOL TARTRATE 25 MG TAB PO SCH (10:21)
[2020-01-23] MEDS: HEPARIN 5,000 UNIT/1 ML VIAL SUB-Q SCH ×2 (10:22→21:18)
--- NOTE | 2020-01-23 14:07 | Discharge Summary ---
Providers - Providers Date of Admission: 01/21/20 15:35 Date of discharge: 01/23/20 Attending physician: ISAIAS GEE MD 01/21/20 13:20 Consult to Physician [CONS] Routine Comment: Consulting Provider: EZEQUIEL CARR Physician Instructions: Reason For Exam: severe renal failure 01/23/20 07:44 Consult to Physician [CONS] Routine Comment: Consulting Provider: ETHEL TAYLOR Physician Instructions: Reason For Exam: congestive heart failure Primary care physician: SPECIAL OFFICER Hospitalization Condition: Stable Disposition: DC- TO HOME OR SELFCARE - Discharge Diagnoses (1) Chronic progressive renal failure, stage 4 (severe) Status: Acute (2) Hypertensive emergency Status: Acute (3) Diabetes mellitus Status: Acute (4) Metabolic acidosis Status: Acute (5) DVT prophylaxis Status: Acute Exam - Constitutional Vitals: Temp Pulse Resp BP Pulse Ox 98.0 F 64 17 130/79 100 01/23/20 11:56 01/23/20 11:56 01/23/20 11:56 01/23/20 11:56 01/23/20 11:56 Plan Follow up with: MILLIE CARRILLO MD [Primary Care Provider] - 7 Days
[2020-01-23] MEDS: ASPIRIN EC 81 MG TAB PO SCH (15:05)
--- NOTE | 2020-01-23 15:25 | Progress Note ---
<RIANNA BARBOSA - Last Filed: 01/23/20 16:27> Assessment and Plan - Patient Problems (1) Acute HFrEF (heart failure with reduced ejection fraction) Current Visit: Yes Status: Acute Plan to address problem: Severe dilated cardiomyopathy with systolic heart failure 01/20 TTE shows severely dilated LV, mild to moderate LVH, global LV systolic function is severely decreased, estimated ejection fraction is 15 to 20%, left atrium is moderately dilated, moderate to severe MR, mild TR, evidence of moderate pulmonary hypertension with RVSP calculated at 48 mmHg. 01/22 initiated on aspirin, beta-alex and isosorbide dinitrate and IV Lasix Cardiology consulted, appreciate recommendations 01/22 initiated on milrinone drip and transferred to telemetry Daily weights Strict intake and output Remote telemetry (2) Chronic progressive renal failure, stage 4 (severe) Current Visit: Yes Status: Acute Plan to address problem: Per nephrology patient is in severe renal failure possibly progressive CKD stage V secondary to HTN and DM Admitting creatinine 6 01/21 creatinine 5.5 s/p IVF Nephrology consulted in the ED Renal ultrasound pending Per nephrology: Patient last saw refining still operator in May and told her creatinine was in the 3 range, states she had dialysis in 2017 for 2 weeks Started on gentle IV hydration, which was discontinued on 01/21 Avoid nephrotoxic medications Strict intake and output Daily weights 01/20 calculated FENa from urine studies is greater than 3%, consistent with prerenal cause 01/22 creatinine 5.7 01/22 nephrology has signed off and recommends outpatient follow-up in 1 to 2 weeks of discharge (3) Hypertensive emergency Current Visit: Yes Status: Acute Plan to address problem: Presented to the ED with a blood pressure of 193/117 Blood pressure monitor per protocol 01/20 started on beta-alex 01/21 given complaints of feeling "strangled when laying down" she was started on hydralazine 50 every 8, discontinued on 01/22 01/21 echocardiogram ordered given history of MT which shows severely dilated cardiomyopathy She was initiated on aspirin, beta-alex increased and isosorbide nitrate started (4) Diabetes mellitus Current Visit: Yes Status: Acute Plan to address problem: SSI CC cardiac renal diet Accu-Cheks AC at bedtime 01/20 Hemoglobin A1c 6.2 (5) Metabolic acidosis Current Visit: Yes Status: Acute Plan to address problem: CO2 20, 01/21 CO2 16 Gentle IV hydration, DC 01/21 Trend BMP Started on Bicitra 30 TID for metabolic acidosis by nephrology on 01/21 (6) DVT prophylaxis Current Visit: Yes Status: Acute Plan to address problem: SCDs to bilateral lower extremities while in bed Heparin subcu History Interval history: 64 YO Female with HTN, MT, DM, CKD presented on 01/19 with complaint of "feeling sick" over the past 4 days and feeding "being smothered". Patient was found to have hypertensive emergency with a blood pressure of 193/117, severe renal disease with a creatinine of 6 and metabolic acidosis. Nephrology team consulted in ED. Patient's TTE shows severe dilated cardiomyopathy with a reduced ejection fraction of 15 to 20%, her BNP is 38,886 therefore she was transferred to telemetry floor and started on a milrinone drip along with 20 mg of IV Lasix daily. Patient's creatinine increased today from 5.5 to 5.7. She had slight improvement to her creatinine from 6 to 5.5 after the initiation of I V fluids however this was stopped because of patient reporting being smothered during sleep. Also cardiology was consulted today who started her on aspirin, beta-alex and isosorbide dinitrate after her echocardiogram was reviewed. Her chest x-ray was also reviewed which shows pulmonary edema. 01/20: renal US pending, urine studies ordered, initiated BB 01/20: TTE and hydralazine ordered Hospitalist Physical - Constitutional Vitals: Temp Pulse Resp BP Pulse Ox 97.5 F L 74 16 126/76 100 01/23/20 15:00 01/23/20 15:00 01/23/20 15:01/23/20 15:01/23/20 11:56 General appearance: Present: no acute distress - EENT Eyes: Present: PERRL, EOM intact ENT: hearing intact, clear oral mucosa - Neck Neck: Present: supple, normal ROM - Respiratory Respiratory effort: normal Respiratory: bilateral: diminished - Cardiovascular Rhythm: regular Heart Sounds: Present: S1 & S2. Absent: systolic murmur, diastolic murmur - Extremities Extremities: no ischemia, pulses intact, pulses symmetrical, No edema, normal temperature, normal color, Full ROM Peripheral Pulses: within normal limits - Abdominal General gastrointestinal: soft, non-tender, non-distended, normal bowel sounds - Integumentary Integumentary: Present: clear, warm, dry - Psychiatric Psychiatric: cooperative - Neurologic Neurologic: CNII-XII intact, no focal deficits, moves all extremities Results - Labs CBC & Chem 7: 01/22/20 08:00 01/23/20 07:35 Labs: Laboratory Last Values WBC 6.0 K/mm3 (4.5-11.0) 01/22/20 08:00 RBC 3.67 M/mm3 (3.65-5.03) 01/22/20 08:00 Hgb 10.7 gm/dl (10.1-14.3) 01/22/20 08:00 Hct 33.5 % (30.3-42.9) 01/22/20 08:00 MCV 91 fl (79-97) 01/22/20 08:00 MCH 29 pg (28-32) 01/22/20 08:00 MCHC 32 % (30-34) 01/22/20 08:00 RDW 16.0 % (13.2-15.2) H 01/22/20 08:00 Plt Count 189 K/mm3 (140-440) 01/22/20 08:00 Sodium 138 mmol/L (137-145) 01/23/20 07:35 Potassium 4.6 mmol/L (3.6-5.0) 01/23/20 07:35 Chloride 104.5 mmol/L (98-107) 01/23/20 07:35 Carbon Dioxide 21 mmol/L (22-30) L 01/23/20 07:35 Anion Gap 17 mmol/L 01/23/20 07:35 BUN 46 mg/dL (7-17) H 01/23/20 07:35 Creatinine 5.7 mg/dL (0.6-1.2) H 01/23/20 07:35 Estimated GFR 9 ml/min 01/23/20 07:35 BUN/Creatinine Ratio 8 % 01/23/20 07:35 Glucose 107 mg/dL (65-100) H 01/23/20 07:35 POC Glucose 99 mg/dL (70-105) 01/23/20 08:20 Hemoglobin A1c 6.2 % (4-6) H 01/21/20 20:43 Calcium 8.6 mg/dL (8.4-10.2) 01/23/20 07:35 Phosphorus 3.20 mg/dL (2.5-4.5) 01/22/20 08:00 NT-Pro-B Natriuret Pep 31986 pg/mL (0-900) H 01/22/20 08:00 PTH Intact 1332 pg/mL (15-65) H 01/22/20 08:00 Urine Eosinophils >5% (None Seen) 01/22/20 01:00 Urine Creatinine 115.9 mg/dL (0.1-20.0) H 01/22/20 01:00 Protein/Creatinin Ratio 1.28 01/22/20 01:00 Urine Sodium 84 mmol/L 01/21/20 06:40 Urine Total Protein 148 mg/dL (5-11.8) H 01/22/20 01:00 Hepatitis A IgM Ab Non-reactive (NonReactive) 01/22/20 08:00 Hep Bs Antigen Non-reactive (Negative) 01/22/20 08:00 Hep B Core IgM Ab Non-reactive (NonReactive) 01/22/20 08:00 Hepatitis C Antibody Non-reactive (NonReactive) 01/22/20 08:00 - Diagnostic Impressions Diagnostic Impressions: Echocardiogram 01/22/20 11:18 Transthoracic Echocardiogram Indication: SOB BP: 152/105 HR: 69 Conclusions *The left ventricular chamber size is severely dilated. *Mild to moderate concentric left ventricular hypertrophy is observed. *Global left ventricular systolic function is severely decreased. *The estimated ejection fraction is 15-20%. *The left atrium is moderately dilated. *There is moderate to severe mitral regurgitation. *There is mild tricuspid regurgitation. *There is evidence of moderate pulmonary hypertension. *The right ventricular systolic pressure is calculated at 48 mmHg. Findings Left Ventricle: The left ventricular chamber size is severely dilated. Mild to moderate concentric left ventricular hypertrophy is observed. Global left ventricular systolic function is severely decreased. The estimated ejection fraction is 15-20%. Left Atrium: The left atrium is moderately dilated. Right Ventricle: The right ventricular cavity size is normal. The right ventricular global systolic function is normal. Right Atrium: The right atrial cavity size is normal. Aortic Valve: The aortic valve is trileaflet. The aortic valve leaflets are moderately thickened. There is trace of aortic regurgitation. There is no evidence of aortic stenosis. Mitral Valve: The mitral valve leaflets are mildly thickened. There is moderate to severe mitral regurgitation. There is no evidence of mitral stenosis. Tricuspid Valve: There is mild tricuspid regurgitation. The right ventricular systolic pressure is calculated at 48 mmHg. There is evidence of moderate pulmonary hypertension. Pulmonic Valve: There is mild pulmonic regurgitation. Pericardium: There is no pericardial effusion. Aorta: There is no dilatation of the ascending aorta. There is no dilatation of the aortic root. Venous: The inferior vena cava appears normal in size. Measurements Chambers 2D Name Value Normal Range IVSd (2D) 1.12 cm (0.6 - 1.1) LVPWd (2D) 1.17 cm (0.6 - 1.1) LVIDd (2D) 5.92 cm (3.7 - 5.6) LVIDs (2D) 4.89 cm (2 - 3.8) LV FS (2D) 17.48 % - EF Teichholz (2D) 35.83 % - Ao root diameter (2D) 3.05 cm (2 - 3.7) Volumes/Mass Name Value Normal Range LA ESV SP 4CH (A/L) 60.53 ml - LA ESV SP 2CH (A/L) 81.81 ml - LA ESV BP (A/L) 73.51 ml - LA ESV BP (A/L) index 39.31 ml/m2 - LA ESV SP 4CH (MOD) 57.3 ml - LA ESV SP 2CH (MOD) 76.37 ml - LA ESV BP (MOD) 68.95 ml - LA ESV BP (MOD) index 36.87 ml/m2 - Diastolic/Systolic Function Name Value Normal Range MV E-wave Vmax 0.9 m/sec - MV deceleration time 181.16 msec - MV A-wave Vmax 0.82 m/sec - MV E:A ratio 1.09 ratio - Aortic Valve Name Value Normal Range AV Vmax 1.5 m/sec - AV VTI 26.98 cm - AV peak gradient 8.99 mmHg - AV mean gradient 4.78 mmHg - LVOT diameter 2.01 cm - LVOT Vmax 0.78 m/sec - LVOT VTI 15.26 cm - LVOT peak gradient 2.43 mmHg - LVOT mean gradient 1.57 mmHg - SV LVOT 48.18 ml - ANABELLA (continuity Vmax) 1.64 cm2 - ANABELLA (continuity VTI) 1.79 cm2 - Mitral Valve Name Value Normal Range MR Vmax 5.58 m/sec - MR VTI 196.54 cm - Tricuspid Valve Name Value Normal Range TR Vmax 3.18 m/sec - TR peak gradient 40 mmHg - RAP 3 mmHg - RVSP 48 mmHg - IVC diameter 2.12 cm (1.2 - 2.3) Pulmonic Valve/Qp:Qs Name Value Normal Range PV Vmax 0.77 m/sec - PV peak gradient 2.35 mmHg - NJ end-diastolic Vmax 1.29 m/sec - PV acceleration time 87.54 msec - Thayer/IV: Voiding Method Toilet IV Catheter Type [Left Hand] INT / Saline Lock Active Medications - Current Medications Current Medications: Generic Name Dose Route Start Last Admin Trade Name Freq PRN Reason Stop Dose Admin Acetaminophen 650 mg 01/20/20 20:53 01/23/20 15:05 Tylenol PO 650 mg Q4H PRN Administration Pain MILD(1-3)/Fever >100.5/SWENSON Albuterol 2.5 mg 01/20/20 20:53 Proventil IH Q4HRT PRN Shortness Of Breath Aspirin 81 mg 01/23/20 14:00 01/23/20 15:05 Halfprin Ec PO 81 mg QDAY GERONIMO Administration Carvedilol 6.25 mg 01/23/20 14:00 Coreg PO BID GERONIMO Citric Acid/Sodium Citrate 30 ml 01/22/20 14:00 01/23/20 15:05 Bicitra PO 30 ml TID GERONIMO Administration Dextrose 50 ml 01/21/20 16:48 D50w (25gm) Syringe IV Q30MIN PRN Hypoglycemia Protocol Furosemide 20 mg 01/23/20 15:00 Lasix IV DAILY@0600 GERONIMO Heparin Sodium (Porcine) 5,000 unit 01/21/20 22:00 01/23/20 10:22 Heparin SUB-Q 5,000 unit Q12HR GERONIMO Administration Milrinone Lactate/Dextrose 20 mg in 100 mls @ 9.169 mls/hr 01/23/20 15:00 Milrinone-D5w 20 Mg/100 Ml IV 01/26/20 14:59 TITR GERONIMO 0.375 MCG/KG/MIN Insulin Human Lispro 0 unit 01/21/20 17:00 01/23/20 13:25 Humalog SUB-Q Not Given ACHS [facility] Protocol Isosorbide Dinitrate 20 mg 01/23/20 14:00 Isordil PO Q8HR [facility] Ondansetron HCl 4 mg 01/20/20 20:53 01/23/20 03:23 Zofran IV 4 mg Q8H PRN Administration Nausea And Vomiting Sodium Chloride 10 ml 01/20/20 22:00 01/23/20 10:23 Sodium Chloride Flush Syringe 10 Ml IV 10 ml BID GERONIMO Administration Sodium Chloride 10 ml 01/20/20 20:53 Sodium Chloride Flush Syringe 10 Ml IV PRN PRN LINE FLUSH <ISAIAS GEE - Last Filed: 01/23/20 17:43> Assessment and Plan Assessment and plan: I saw and evaluated the patient. I agree with the findings and the plan of care as documented in the Nurse Practitioner's~note, with the following corrections and additions. Hospitalist Physical - Constitutional Vitals: Temp Pulse Resp BP Pulse Ox 97.5 F L 84 16 132/72 100 01/23/20 15:00 01/23/20 17:30 01/23/20 15:00 01/23/20 17:30 01/23/20 11:56 Results - Labs CBC & Chem 7: 01/22/20 08:00 01/23/20 07:35 Labs: Laboratory Last Values WBC 6.0 K/mm3 (4.5-11.0) 01/22/20 08:00 RBC 3.67 M/mm3 (3.65-5.03) 01/22/20 08:00 Hgb 10.7 gm/dl (10.1-14.3) 01/22/20 08:00 Hct 33.5 % (30.3-42.9) 01/22/20 08:00 MCV 91 fl (79-97) 01/22/20 08:00 MCH 29 pg (28-32) 01/22/20 08:00 MCHC 32 % (30-34) 01/22/20 08:00 RDW 16.0 % (13.2-15.2) H 01/22/20 08:00 Plt Count 189 K/mm3 (140-440) 01/22/20 08:00 Sodium 138 mmol/L (137-145) 01/23/20 07:35 Potassium 4.6 mmol/L (3.6-5.0) 01/23/20 07:35 Chloride 104.5 mmol/L (98-107) 01/23/20 07:35 Carbon Dioxide 21 mmol/L (22-30) L 01/23/20 07:35 Anion Gap 17 mmol/L 01/23/20 07:35 BUN 46 mg/dL (7-17) H 01/23/20 07:35 Creatinine 5.7 mg/dL (0.6-1.2) H 01/23/20 07:35 Estimated GFR 9 ml/min 01/23/20 07:35 BUN/Creatinine Ratio 8 % 01/23/20 07:35 Glucose 107 mg/dL (65-100) H 01/23/20 07:35 POC Glucose 157 mg/dL (70-105) H 01/23/20 17:28 Hemoglobin A1c 6.2 % (4-6) H 01/21/20 20:43 Calcium 8.6 mg/dL (8.4-10.2) 01/23/20 07:35 Phosphorus 3.20 mg/dL (2.5-4.5) 01/22/20 08:00 NT-Pro-B Natriuret Pep 52308 pg/mL (0-900) H 01/22/20 08:00 PTH Intact 1332 pg/mL (15-65) H 01/22/20 08:00 Urine Eosinophils >5% (None Seen) 01/22/20 01:00 Urine Creatinine 115.9 mg/dL (0.1-20.0) H 01/22/20 01:00 Protein/Creatinin Ratio 1.28 01/22/20 01:00 Urine Sodium 84 mmol/L 01/21/20 06:40 Urine Total Protein 148 mg/dL (5-11.8) H 01/22/20 01:00 Hepatitis A IgM Ab Non-reactive (NonReactive) 01/22/20 08:00 Hep Bs Antigen Non-reactive (Negative) 01/22/20 08:00 Hep B Core IgM Ab Non-reactive (NonReactive) 01/22/20 08:00 Hepatitis C Antibody Non-reactive (NonReactive) 01/22/20 08:00 - Diagnostic Impressions Diagnostic Impressions: Echocardiogram 01/22/20 11:18 Transthoracic Echocardiogram Indication: SOB BP: 152/105 HR: 69 Conclusions *The left ventricular chamber size is severely dilated. *Mild to moderate concentric left ventricular hypertrophy is observed. *Global left ventricular systolic function is severely decreased. *The estimated ejection fraction is 15-20%. *The left atrium is moderately dilated. *There is moderate to severe mitral regurgitation. *There is mild tricuspid regurgitation. *There is evidence of moderate pulmonary hypertension. *The right ventricular systolic pressure is calculated at 48 mmHg. Findings Left Ventricle: The left ventricular chamber size is severely dilated. Mild to moderate concentric left ventricular hypertrophy is observed. Global left ventricular systolic function is severely decreased. The estimated ejection fraction is 15-20%. Left Atrium: The left atrium is moderately dilated. Right Ventricle: The right ventricular cavity size is normal. The right ventricular global systolic function is normal. Right Atrium: The right atrial cavity size is normal. Aortic Valve: The aortic valve is trileaflet. The aortic valve leaflets are moderately thickened. There is trace of aortic regurgitation. There is no evidence of aortic stenosis. Mitral Valve: The mitral valve leaflets are mildly thickened. There is moderate to severe mitral regurgitation. There is no evidence of mitral stenosis. Tricuspid Valve: There is mild tricuspid regurgitation. The right ventricular systolic pressure is calculated at 48 mmHg. There is evidence of moderate pulmonary hypertension. Pulmonic Valve: There is mild pulmonic regurgitation. Pericardium: There is no pericardial effusion. Aorta: There is no dilatation of the ascending aorta. There is no dilatation of the aortic root. Venous: The inferior vena cava appears normal in size. Measurements Chambers 2D Name Value Normal Range IVSd (2D) 1.12 cm (0.6 - 1.1) LVPWd (2D) 1.17 cm (0.6 - 1.1) LVIDd (2D) 5.92 cm (3.7 - 5.6) LVIDs (2D) 4.89 cm (2 - 3.8) LV FS (2D) 17.48 % - EF Teichholz (2D) 35.83 % - Ao root diameter (2D) 3.05 cm (2 - 3.7) Volumes/Mass Name Value Normal Range LA ESV SP 4CH (A/L) 60.53 ml - LA ESV SP 2CH (A/L) 81.81 ml - LA ESV BP (A/L) 73.51 ml - LA ESV BP (A/L) index 39.31 ml/m2 - LA ESV SP 4CH (MOD) 57.3 ml - LA ESV SP 2CH (MOD) 76.37 ml - LA ESV BP (MOD) 68.95 ml - LA ESV BP (MOD) index 36.87 ml/m2 - Diastolic/Systolic Function Name Value Normal Range MV E-wave Vmax 0.9 m/sec - MV deceleration time 181.16 msec - MV A-wave Vmax 0.82 m/sec - MV E:A ratio 1.09 ratio - Aortic Valve Name Value Normal Range AV Vmax 1.5 m/sec - AV VTI 26.98 cm - AV peak gradient 8.99 mmHg - AV mean gradient 4.78 mmHg - LVOT diameter 2.01 cm - LVOT Vmax 0.78 m/sec - LVOT VTI 15.26 cm - LVOT peak gradient 2.43 mmHg - LVOT mean gradient 1.57 mmHg - SV LVOT 48.18 ml - ANABELLA (continuity Vmax) 1.64 cm2 - ANABELLA (continuity VTI) 1.79 cm2 - Mitral Valve Name Value Normal Range MR Vmax 5.58 m/sec - MR VTI 196.54 cm - Tricuspid Valve Name Value Normal Range TR Vmax 3.18 m/sec - TR peak gradient 40 mmHg - RAP 3 mmHg - RVSP 48 mmHg - IVC diameter 2.12 cm (1.2 - 2.3) Pulmonic Valve/Qp:Qs Name Value Normal Range PV Vmax 0.77 m/sec - PV peak gradient 2.35 mmHg - NJ end-diastolic Vmax 1.29 m/sec - PV acceleration time 87.54 msec - Thaeyr/IV: Voiding Method Toilet IV Catheter Type [Left Hand] INT / Saline Lock Active Medications - Current Medications Current Medications: Generic Name Dose Route Start Last Admin Trade Name Freq PRN Reason Stop Dose Admin Acetaminophen 650 mg 01/20/20 20:53 01/23/20 15:05 Tylenol PO 650 mg Q4H PRN Administration Pain MILD(1-3)/Fever >100.5/SWENSON Albuterol 2.5 mg 01/20/20 20:53 Proventil IH Q4HRT PRN Shortness Of Breath Aspirin 81 mg 01/23/20 14:00 01/23/20 15:05 Halfprin Ec PO 81 mg QDAY GERONIMO Administration Carvedilol 6.25 mg 01/23/20 14:00 01/23/20 17:30 Coreg PO 6.25 mg BID GERONIMO Administration Citric Acid/Sodium Citrate 30 ml 01/22/20 14:00 01/23/20 15:05 Bicitra PO 30 ml TID GERONIMO Administration Dextrose 50 ml 01/21/20 16:48 D50w (25gm) Syringe IV Q30MIN PRN Hypoglycemia Protocol Furosemide 20 mg 01/23/20 15:00 01/23/20 15:30 Lasix IV 20 mg DAILY@0600 GERONIMO Administration Heparin Sodium (Porcine) 5,000 unit 01/21/20 22:00 01/23/20 10:22 Heparin SUB-Q 5,000 unit Q12HR GERONIMO Administration Milrinone Lactate/Dextrose 20 mg in 100 mls @ 9.169 mls/hr 01/23/20 15:00 Milrinone-D5w 20 Mg/100 Ml IV 01/26/20 14:59 TITR GERONIMO 0.375 MCG/KG/MIN Insulin Human Lispro 0 unit 01/21/20 17:00 01/23/20 17:30 Humalog SUB-Q Not Given ACHS [facility] Protocol Isosorbide Dinitrate 20 mg 01/23/20 14:00 01/23/20 17:30 Isordil PO 20 mg Q8HR GERONIMO Administration Ondansetron HCl 4 mg 01/20/20 20:53 01/23/20 03:23 Zofran IV 4 mg Q8H PRN Administration Nausea And Vomiting Sodium Chloride 10 ml 01/20/20 22:00 01/23/20 10:23 Sodium Chloride Flush Syringe 10 Ml IV 10 ml BID GERONIMO Administration Sodium Chloride 10 ml 01/20/20 20:53 Sodium Chloride Flush Syringe 10 Ml IV PRN PRN LINE FLUSH
[2020-01-23] MEDS: FUROSEMIDE 20 MG/2 ML INJ IV SCH (15:30)
[2020-01-23] MEDS: ISOSORBIDE DINITRATE 20 MG TAB PO SCH ×2 (17:30→21:18)
[2020-01-23] MEDS: carvediloL 6.25 MG TAB PO SCH ×2 (17:30→21:12)
--- NOTE | 2020-01-23 19:30 | Ultrasound Report ---
US renal BILAT INDICATION / CLINICAL INFORMATION: yamileth. COMPARISON: None available. FINDINGS: Right kidney measures 9.3 cm in length, with cortical thickness of 1.0 cm. No hydronephrosis or obvio us abnormal mass or calcification. Left kidney measures 8.8 cm diameter, with cortical thickness of 1 cm. No hydronephrosis, abnormal ma ss or calcification. Urinary bladder is unremarkable. IMPRESSION: 1. No significant abnormality. Signer Name: Marcelo Alegria MD Signed: 01/23/2020 7:26 PM Workstation Name: [id number]
[2020-01-23] MEDS: MILRINONE-D5W 20 MG/100 ML 20 MG/100 ML BAG IV SCH (21:12)
[2020-01-24] MEDS: MILRINONE-D5W 20 MG/100 ML 20 MG/100 ML BAG IV SCH ×2 (05:47→17:05)
[2020-01-24] MEDS: ACETAMINOPHEN 325 MG TAB PO PRN ×2 (06:09→17:09)
[2020-01-24] MEDS: ISOSORBIDE DINITRATE 20 MG TAB PO SCH ×3 (06:10→22:49)
[2020-01-24] MEDS: FUROSEMIDE 20 MG/2 ML INJ IV SCH (06:16)
[2020-01-24] MEDS: BICITRA ORAL LIQD 30ML PO SCH ×3 (08:00→22:50)
[2020-01-24] MEDS: INSULIN LISPRO 100 UNIT/ML VIAL 3 mL SUB-Q SCH ×4 (08:53→23:06)
--- NOTE | 2020-01-24 09:52 | Progress Note ---
Assessment and Plan Assessment and plan: 64 YO Female with HTN, [place], DM, CKD presented on 01/19 with complaint of "feeling sick" over the past 4 days and feeding "being smothered". Patient was found to have hypertensive emergency with a blood pressure of 193/117, severe renal disease with a creatinine of 6 and metabolic acidosis. Nephrology team consulted in ED. Patient's TTE shows severe dilated cardiomyopathy with a reduced ejection fraction of 15 to 20%, her BNP is 38,886 therefore she was transferred to telemetry floor and started on a milrinone drip along with 20 mg of IV Lasix daily. Patient's creatinine increased today from 5.5 to 5.7. She had slight improvement to her creatinine from 6 to 5.5 after the initiation of IV fluids however this was stopped because of patient reporting being smothered during sleep. Also cardiology was consulted today who started her on aspirin, beta-alex and isosorbide dinitrate after her echocardiogram was reviewed. Her chest x-ray was also reviewed which shows pulmonary edema. 01/23: Echocardiogram reviewed yesterday shows ejection fraction of 10 to 15% discussed with geophysical laboratory chief. Milrinone drip initiated in addition to Lasix. Labs today still pending. Unfortunately strict I's and O's has not been observed discussed with nursing staff. Die Sinker informed. Patient has significant pulmonary edema on chest x-ray as we reviewed by me. Clinically she is improving. I discussed her clinical results with her she verbalized understanding. Acute HFrEF (heart failure with reduced ejection fraction) Current Visit: Yes Status: Acute Plan to address problem: Severe dilated cardiomyopathy with systolic heart failure 01/20 TTE shows severely dilated LV, mild to moderate LVH, global LV systolic function is severely decreased, estimated ejection fraction is 15 to 20%, left atrium is moderately dilated, moderate to severe MR, mild TR, evidence of modera te pulmonary hypertension with RVSP calculated at 48 mmHg. 01/22 initiated on aspirin, beta-alex and isosorbide dinitrate and IV Lasix Cardiology consulted, appreciate recommendations 01/22 initiated on milrinone drip and transferred to telemetry Daily weights Strict intake and output Remote telemetry Severe nonischemic dilated cardiomyopathy Continue cardiac work-up. Will need close follow-up with geophysical laboratory chief patient verbalized understanding. chronic progressive renal failure, stage 4 (severe) Current Visit: Yes Status: Acute Plan to address problem: Per nephrology patient is in severe renal failure possibly progressive CKD stage V secondary to HTN and DM Admitting creatinine 6 01/21 creatinine 5.5 s/p IVF Nephrology consulted in the ED Renal ultrasound pending Per nephrology: Patient last saw environmental compliance specialist in May and told her creatinine was in the 3 range, states she had dialysis in 2017 for 2 weeks Started on gentle IV hydration, which was discontinued on 01/21 Avoid nephrotoxic medications Strict intake and output Daily weights 01/20 calculated FENa from urine studies is greater than 3%, consistent with prerenal cause 01/22 creatinine 5.7 01/22 nephrology has signed off and recommends outpatient follow-up in 1 to 2 weeks of discharge Hypertensive emergency Current Visit: Yes Status: Acute Plan to address problem: Presented to the ED with a blood pressure of 193/117 Blood pressure monitor per protocol 01/20 started on beta-alex 01/21 given complaints of feeling "strangled when laying down" she was started on hydralazine 50 every 8, discontinued on 01/22 01/21 echocardiogram ordered given history of WA which shows severely dilated cardiomyopathy She was initiated on aspirin, beta-alex increased and isosorbide nitrate started Diabetes mellitus Current Visit: Yes Status: Acute Plan to address problem: SSI CC cardiac renal diet Accu-Cheks AC at bedtime 01/20 Hemoglobin A1c 6.2 Metabolic acidosis Current Visit: Yes Status: Acute Plan to address problem: CO2 20, 01/21 CO2 16 Gentle IV hydration, DC 01/21 Trend BMP Started on Bicitra 30 TID for metabolic acidosis by nephrology on 01/21 DVT prophylaxis Current Visit: Yes Status: Acute Plan to address problem: SCDs to bilateral lower extremities while in bed Heparin subcu History Interval history: Patient seen and examined no new complaints. No further orthopnea noted. Did complain of mild neck pain but states that it was secondary to the pillow positioning. Hospitalist Physical - Physical exam Narrative exam: VITAL SIGNS: Reviewed. GENERAL: The patient appears normally developed, Vital signs as documented. HEAD: No signs of head trauma. EYES: Pupils are equal. Extraocular motions intact. EARS: Hearing grossly intact. MOUTH: Oropharynx is normal. NECK: No adenopathy, no JVD. CHEST: Chest with clear breath sounds bilaterally. No wheezes, rales, or rhonchi. CARDIAC: Regular rate and rhythm. S1 and S2, without murmurs, gallops, or rubs. VASCULAR: No Edema. Peripheral pulses normal and equal in all extremities. ABDOMEN: Soft, non tender and non distended. No rebound or guarding, and no masses palpated. Bowel Sounds normal. MUSCULOSKELETAL: Good range of motion of all major joints. Extremities without clubbing, cyanosis or edema. NEUROLOGIC EXAM: Alert and oriented x 3 No focal sensory or strength deficits. Speech normal. Follows commands. PSYCHIATRIC: Mood normal. SKIN: detail exam as documented in skin assessment - Constitutional Vitals: Temp Pulse Resp BP Pulse Ox 98.7 F 92 H 18 105/46 97 01/24/20 07:56 01/24/20 07:56 01/24/20 07:56 01/24/20 07:56 01/24/20 07:56 General appearance: Present: no acute distress Results - Labs CBC & Chem 7: 01/22/20 08:00 01/23/20 07:35 Labs: Laboratory Last Values WBC 6.0 K/mm3 (4.5-11.0) 01/22/20 08:00 RBC 3.67 M/mm3 (3.65-5.03) 01/22/20 08:00 Hgb 10.7 gm/dl (10.1-14.3) 01/22/20 08:00 Hct 33.5 % (30.3-42.9) 01/22/20 08:00 MCV 91 fl (79-97) 01/22/20 08:00 MCH 29 pg (28-32) 01/22/20 08:00 MCHC 32 % (30-34) 01/22/20 08:00 RDW 16.0 % (13.2-15.2) H 01/22/20 08:00 Plt Count 189 K/mm3 (140-440) 01/22/20 08:00 Sodium 138 mmol/L (137-145) 01/23/20 07:35 Potassium 4.6 mmol/L (3.6-5.0) 01/23/20 07:35 Chloride 104.5 mmol/L (98-107) 01/23/20 07:35 Carbon Dioxide 21 mmol/L (22-30) L 01/23/20 07:35 Anion Gap 17 mmol/L 01/23/20 07:35 BUN 46 mg/dL (7-17) H 01/23/20 07:35 Creatinine 5.7 mg/dL (0.6-1.2) H 01/23/20 07:35 Estimated GFR 9 ml/min 01/23/20 07:35 BUN/Creatinine Ratio 8 % 01/23/20 07:35 Glucose 107 mg/dL (65-100) H 01/23/20 07:35 POC Glucose 123 mg/dL (70-105) H 01/24/20 08:11 Hemoglobin A1c 6.2 % (4-6) H 01/21/20 20:43 Calcium 8.6 mg/dL (8.4-10.2) 01/23/20 07:35 Phosphorus 3.20 mg/dL (2.5-4.5) 01/22/20 08:00 NT-Pro-B Natriuret Pep 32103 pg/mL (0-900) H 01/22/20 08:00 PTH Intact 1332 pg/mL (15-65) H 01/22/20 08:00 Urine Eosinophils >5% (None Seen) 01/22/20 01:00 Urine Creatinine 115.9 mg/dL (0.1-20.0) H 01/22/20 01:00 Protein/Creatinin Ratio 1.28 01/22/20 01:00 Urine Sodium 84 mmol/L 01/21/20 06:40 Urine Total Protein 148 mg/dL (5-11.8) H 01/22/20 01:00 Hepatitis A IgM Ab Non-reactive (NonReactive) 01/22/20 08:00 Hep Bs Antigen Non-reactive (Negative) 01/22/20 08:00 Hep B Core IgM Ab Non-reactive (NonReactive) 01/22/20 08:00 Hepatitis C Antibody Non-reactive (NonReactive) 01/22/20 08:00 - Diagnostic Impressions Diagnostic Impressions: Echocardiogram 01/22/20 11:18 Transthoracic Echocardiogram Indication: SOB BP: 152/105 HR: 69 Conclusions *The left ventricular chamber size is severely dilated. *Mild to moderate concentric left ventricular hypertrophy is observed. *Global left ventricular systolic function is severely decreased. *The estimated ejection fraction is 15-20%. *The left atrium is moderately dilated. *There is moderate to severe mitral regurgitation. *There is mild tricuspid regurgitation. *There is evidence of moderate pulmonary hypertension. *The right ventricular systolic pressure is calculated at 48 mmHg. Findings Left Ventricle: The left ventricular chamber size is severely dilated. Mild to moderate concentric left ventricular hypertrophy is observed. Global left ventricular systolic function is severely decreased. The estimated ejection fraction is 15-20%. Left Atrium: The left atrium is moderately dilated. Right Ventricle: The right ventricular cavity size is normal. The right ventricular global systolic function is normal. Right Atrium: The right atrial cavity size is normal. Aortic Valve: The aortic valve is trileaflet. The aortic valve leaflets are moderately thickened. There is trace of aortic regurgitation. There is no evidence of aortic stenosis. Mitral Valve: The mitral valve leaflets are mildly thickened. There is moderate to severe mitral regurgitation. There is no evidence of mitral stenosis. Tricuspid Valve: There is mild tricuspid regurgitation. The right ventricular systolic pressure is calculated at 48 mmHg. There is evidence of moderate pulmonary hypertension. Pulmonic Valve: There is mild pulmonic regurgitation. Pericardium: There is no pericardial effusion. Aorta: There is no dilatation of the ascending aorta. There is no dilatation of the aortic root. Venous: The inferior vena cava appears normal in size. Measurements Chambers 2D Name Value Normal Range IVSd (2D) 1.12 cm (0.6 - 1.1) LVPWd (2D) 1.17 cm (0.6 - 1.1) LVIDd (2D) 5.92 cm (3.7 - 5.6) LVIDs (2D) 4.89 cm (2 - 3.8) LV FS (2D) 17.48 % - EF Teichholz (2D) 35.83 % - Ao root diameter (2D) 3.05 cm (2 - 3.7) Volumes/Mass Name Value Normal Range LA ESV SP 4CH (A/L) 60.53 ml - LA ESV SP 2CH (A/L) 81.81 ml - LA ESV BP (A/L) 73.51 ml - LA ESV BP (A/L) index 39.31 ml/m2 - LA ESV SP 4CH (MOD) 57.3 ml - LA ESV SP 2CH (MOD) 76.37 ml - LA ESV BP (MOD) 68.95 ml - LA ESV BP (MOD) index 36.87 ml/m2 - Diastolic/Systolic Function Name Value Normal Range MV E-wave Vmax 0.9 m/sec - MV deceleration time 181.16 msec - MV A-wave Vmax 0.82 m/sec - MV E:A ratio 1.09 ratio - Aortic Valve Name Value Normal Range AV Vmax 1.5 m/sec - AV VTI 26.98 cm - AV peak gradient 8.99 mmHg - AV mean gradient 4.78 mmHg - LVOT diameter 2.01 cm - LVOT Vmax 0.78 m/sec - LVOT VTI 15.26 cm - LVOT peak gradient 2.43 mmHg - LVOT mean gradient 1.57 mmHg - SV LVOT 48.18 ml - ANABELLA (continuity Vmax) 1.64 cm2 - ANABELLA (continuity VTI) 1.79 cm2 - Mitral Valve Name Value Normal Range MR Vmax 5.58 m/sec - MR VTI 196.54 cm - Tricuspid Valve Name Value Normal Range TR Vmax 3.18 m/sec - TR peak gradient 40 mmHg - RAP 3 mmHg - RVSP 48 mmHg - IVC diameter 2.12 cm (1.2 - 2.3) Pulmonic Valve/Qp:Qs Name Value Normal Range PV Vmax 0.77 m/sec - PV peak gradient 2.35 mmHg - MT end-diastolic Vmax 1.29 m/sec - PV acceleration time 87.54 msec - Thayer/IV: Voiding Method Toilet IV Catheter Type [Left Hand] INT / Saline Lock Active Medications - Current Medications Current Medications: Generic Name Dose Route Start Last Admin Trade Name Freq PRN Reason Stop Dose Admin Acetaminophen 650 mg 01/20/20 20:53 01/24/20 06:09 Tylenol PO 650 mg Q4H PRN Administration Pain MILD(1-3)/Fever >100.5/SWENSON Albuterol 2.5 mg 01/20/20 20:53 Proventil IH Q4HRT PRN Shortness Of Breath Aspirin 81 mg 01/23/20 14:00 01/23/20 15:05 Halfprin Ec PO 81 mg QDAY GERONIMO Administration Carvedilol 6.25 mg 01/23/20 14:00 01/23/20 21:12 Coreg PO 6.25 mg BID GERONIMO Administration Citric Acid/Sodium Citrate 30 ml 01/22/20 14:00 01/23/20 22:55 Bicitra PO 30 ml TID GERONIMO Administration Dextrose 50 ml 01/21/20 16:48 D50w (25gm) Syringe IV Q30MIN PRN Hypoglycemia Protocol Furosemide 20 mg 01/23/20 15:00 01/24/20 06:16 Lasix IV 20 mg DAILY@0600 GERONIMO Administration Heparin Sodium (Porcine) 5,000 unit 01/21/20 22:00 01/23/20 21:18 Heparin SUB-Q 5,000 unit Q12HR GERONIMO Administration Milrinone Lactate/Dextrose 20 mg in 100 mls @ 9.169 mls/hr 01/23/20 20:00 01/24/20 05:47 Milrinone-D5w 20 Mg/100 Ml IV 01/26/20 19:59 0.375 mcg/kg/min TITR GERONIMO 9.169 mls/hr Administration 0.375 MCG/KG/MIN Insulin Human Lispro 0 unit 01/21/20 17:00 01/24/20 08:53 Humalog SUB-Q Not Given ACHS [facility] Protocol Isosorbide Dinitrate 20 mg 01/23/20 14:00 01/24/20 06:10 Isordil PO 20 mg Q8HR GERONIMO Administration Ondansetron HCl 4 mg 01/20/20 20:53 01/23/20 03:23 Zofran IV 4 mg Q8H PRN Administration Nausea And Vomiting Sodium Chloride 10 ml 01/20/20 22:00 01/23/20 21:19 Sodium Chloride Flush Syringe 10 Ml IV 10 ml BID GERONIMO Administration Sodium Chloride 10 ml 01/20/20 20:53 Sodium Chloride Flush Syringe 10 Ml IV PRN PRN LINE FLUSH
[2020-01-24] MEDS: carvediloL 6.25 MG TAB PO SCH ×2 (10:04→22:49)
[2020-01-24] MEDS: ASPIRIN EC 81 MG TAB PO SCH (10:05)
[2020-01-24] MEDS: HEPARIN 5,000 UNIT/1 ML VIAL SUB-Q SCH ×2 (10:06→22:51)
--- NOTE | 2020-01-24 10:17 | Progress Note ---
Assessment and Plan 1. Chronic combined systolic and diastolic heart failure left ventricular ejection fraction 15 to 20%. 2. Dilated cardiomyopathy 3. Acute on chronic kidney disease 4. Essential hypertension 5. Type 2 diabetes mellitus 6. Obesity Plan. Patient is currently stable continue renal work-up further cardiac work-up with a right and left heart catheterization when cleared by waste machine tender. Continue present medication for pre and afterload reduction of the left ventricle Subjective Date of service: 01/24/20 Principal diagnosis: CKD stage V Interval history: No cardiac symptoms. Objective Vital Signs Temp Pulse Pulse Resp BP BP Pulse Ox 01/24/20 10:10 99 01/24/20 10:04 89 134/87 01/24/20 07:56 98.7 F 92 H 18 105/46 97 01/24/20 06:10 103 H 120/55 01/24/20 04:58 99.0 F 92 H 18 120/55 94 01/23/20 23:48 98.7 F 87 18 124/63 98 01/23/20 22:00 75 18 98 01/23/20 21:18 75 121/72 01/23/20 21:12 75 121/72 01/23/20 19:34 97.8 F 78 18 119/66 99 01/23/20 17:30 84 132/72 01/23/20 15:00 97.5 F L 74 16 126/76 01/23/20 11:56 98.0 F 64 17 130/79 100 - Physical Examination General: Appears Well, No Apparent Distress, Other (obese) HEENT: Positive: PERRL, Mucus Membranes Moist Neck: Positive: trachea midline Cardiac: Positive: Reg Rate and Rhythm, S1/S2, S3, PMI, Dilated, Laterally Displaced Lungs: Positive: clear to auscultation, No Wheeze, Rales, Rhonchi Neuro: Positive: Grossly Intact Abdomen: Positive: Unremarkable, Active Bowel Sounds Extremities: Absent: edema
[2020-01-24 10:25] LABS: Calcium 8.1 mg/dL (8.4-10.2)
--- NOTE | 2020-01-24 12:54 | Progress Note ---
Assessment and Plan Assessment and Plan Severe Renal Failure, possibly progressive CKD stage 5 secondary to HTN and DM, r/o obstruction S/P Hypertensive Emergency Hypertension Diabetes mellitus Plan: -Cr slightly worse, monitor. -States was on hemodialysis for 2 weeks in 2017 -On Bicitra 30 TID for metabolic acidosis -Avoid nephrotoxic agents -Monitor I/O's -Renally dose medications -Obtain daily weights -Continue to monitor renal function closely, discussed with patient that given her advanced renal disease, risk factors and medical history, she will likely need hemodialysis in the very near future if renal function does not improve. Subjective Date of service: 01/24/20 Principal diagnosis: CKD stage V Interval history: Cr slightly up. Making some urine. Objective - Exam Narrative Exam: General appearance: well-developed, well-nourished EENT: ATNC, PERRL Neck: no JVD, no carotid bruit Respiratory: Present: Decreased Breath Sounds Cardiology: regular, S1S2 Gastrointestinal: normoactive bowel sounds Integumentary: no rash, warm and dry Neurologic: no focal deficit Psychiatric: cooperative - Vital Signs Vital signs: Vital Signs - 12hr 01/24/20 01/24/20 01/24/20 04:58 06:10 07:56 Temperature 99.0 F 98.7 F Pulse Rate 92 H 103 H 92 H Pulse Rate [ Apical] Respiratory 18 18 Rate Blood Pressure 120/55 120/55 105/46 O2 Sat by Pulse 94 97 Oximetry 01/24/20 01/24/20 01/24/20 10:00 10:04 10:10 Temperature Pulse Rate 89 Pulse Rate [ 92 H Apical] Respiratory 23 Rate Blood Pressure 134/87 O2 Sat by Pulse 98 99 Oximetry 01/24/20 11:48 Temperature 98.5 F Pulse Rate 91 H Pulse Rate [ Apical] Respiratory 16 Rate Blood Pressure 134/64 O2 Sat by Pulse 98 Oximetry - Lab 01/22/20 08:00 01/24/20 10:00 Most recent lab results Calcium 8.1 mg/dL (8.4-10.2) L 01/24/20 10:00 Phosphorus 3.20 mg/dL (2.5-4.5) 01/22/20 08:00 Urine Creatinine 115.9 mg/dL (0.1-20.0) H 01/22/20 01:00 Urine Sodium 84 mmol/L 01/21/20 06:40 Urine Total Protein 148 mg/dL (5-11.8) H 01/22/20 01:00 Medications & Allergies - Medications Allergies/Adverse Reactions: Allergies nifedipine Allergy (Verified 01/20/20 19:55) Swelling Home Medications: Home Medications Medication Instructions Recorded Confirmed Last Taken Type No Known Home Medications [No 01/20/20 01/20/20 Unknown History Reported Home Medications] Active Medications: Generic Name Dose Route Start Last Admin Trade Name Freq PRN Reason Stop Dose Admin Acetaminophen 650 mg 01/20/20 20:53 01/24/20 06:09 Tylenol PO 650 mg Q4H PRN Administration Pain MILD(1-3)/Fever >100.5/SWENSON Albuterol 2.5 mg 01/20/20 20:53 Proventil IH Q4HRT PRN Shortness Of Breath Aspirin 81 mg 01/23/20 14:00 01/24/20 10:05 Halfprin Ec PO 81 mg QDAY GERONIMO Administration Carvedilol 6.25 mg 01/23/20 14:00 01/24/20 10:04 Coreg PO 6.25 mg BID GERONIMO Administration Citric Acid/Sodium Citrate 30 ml 01/22/20 14:00 01/24/20 08:00 Bicitra PO 30 ml TID GERONIMO Administration Dextrose 50 ml 01/21/20 16:48 D50w (25gm) Syringe IV Q30MIN PRN Hypoglycemia Protocol Furosemide 20 mg 01/23/20 15:00 01/24/20 06:16 Lasix IV 20 mg DAILY@0600 GERONIMO Administration Heparin Sodium (Porcine) 5,000 unit 01/21/20 22:00 01/24/20 10:06 Heparin SUB-Q 5,000 unit Q12HR GERONIMO Administration Milrinone Lactate/Dextrose 20 mg in 100 mls @ 9.169 mls/hr 01/23/20 20:00 01/24/20 05:47 Milrinone-D5w 20 Mg/100 Ml IV 01/26/20 19:59 0.375 mcg/kg/min TITR GERONIMO 9.169 mls/hr Administration 0.375 MCG/KG/MIN Insulin Human Lispro 0 unit 01/21/20 17:00 01/24/20 08:53 Humalog SUB-Q Not Given ACHS [facility] Protocol Isosorbide Dinitrate 20 mg 01/23/20 14:00 01/24/20 06:10 Isordil PO 20 mg Q8HR GERONIMO Administration Ondansetron HCl 4 mg 01/20/20 20:53 01/23/20 03:23 Zofran IV 4 mg Q8H PRN Administration Nausea And Vomiting Sodium Chloride 10 ml 01/20/20 22:00 01/24/20 10:06 Sodium Chloride Flush Syringe 10 Ml IV 10 ml BID GERONIMO Administration Sodium Chloride 10 ml 01/20/20 20:53 Sodium Chloride Flush Syringe 10 Ml IV PRN PRN LINE FLUSH
[2020-01-25] MEDS: MILRINONE-D5W 20 MG/100 ML 20 MG/100 ML BAG IV SCH ×2 (02:44→12:38)
[2020-01-25] MEDS: ACETAMINOPHEN 325 MG TAB PO PRN (03:03)
[2020-01-25] MEDS: ISOSORBIDE DINITRATE 20 MG TAB PO SCH ×2 (05:46→14:39)
[2020-01-25] MEDS: FUROSEMIDE 20 MG/2 ML INJ IV SCH (05:46)
[2020-01-25] MEDS: BICITRA ORAL LIQD 30ML PO SCH ×2 (08:00→14:38)
[2020-01-25 08:03] LABS: Calcium 8.5 mg/dL (8.4-10.2)
[2020-01-25 08:08] LABS: Hematocrit 28.6 % (30.3-42.9); Hemoglobin 9.4 gm/dl (10.1-14.3); Mean Corpuscular HGB Conc 33 % (30-34); Mean Corpuscular Volume 90 fl (79-97); Platelet Count 195 K/mm3 (140-440); Red Blood Count 3.18 M/mm3 (3.65-5.03); Red Cell Distribution Width 15.2 % (13.2-15.2)
--- NOTE | 2020-01-25 09:35 | Progress Note ---
Assessment and Plan 1. Chronic combined systolic and diastolic heart failure left ventricular ejection fraction 15 to 20%. 2. Dilated cardiomyopathy 3. Acute on chronic kidney disease 4. Essential hypertension 5. Type 2 diabetes mellitus 6. Obesity Plan. Patient is currently stable continue renal work-up further cardiac work-up with a right and left heart catheterization when cleared by openstack developer. Continue present medication for pre and afterload reduction of the left ventricle Subjective Date of service: 01/25/20 Principal diagnosis: CKD stage V Interval history: No cardiac symptoms. Objective Vital Signs Temp Pulse Pulse Resp BP Pulse Ox 01/25/20 07:53 99.8 F H 91 H 18 110/50 95 01/25/20 05:46 92 H 99/53 01/25/20 00:03 98.0 F 96 H 18 119/57 96 01/24/20 22:49 95 H 140/67 01/24/20 22:00 95 H 20 97 01/24/20 19:13 98.7 F 95 H 20 140/67 97 01/24/20 17:00 104 H 01/24/20 16:29 97.9 F 92 H 16 136/66 100 01/24/20 13:47 89 134/61 01/24/20 13:46 96 H 134/61 95 01/24/20 12:00 90 01/24/20 11:48 98.5 F 91 H 16 134/64 98 - Physical Examination General: Appears Well, No Apparent Distress, Other (obese) HEENT: Positive: PERRL, Mucus Membranes Moist Neck: Positive: trachea midline. Negative: JVD/HJR Cardiac: Positive: Regular Rate, S1/S2, PMI, Laterally Displaced. Negative: S3, S4 Lungs: Positive: clear to auscultation, No Wheeze, Rales, Rhonchi Neuro: Positive: Grossly Intact Abdomen: Positive: Unremarkable, Active Bowel Sounds Extremities: Absent: edema - Labs and Meds CBC 01/25/20 Range/Units 04:00 WBC 7.7 (4.5-11.0) K/mm3 RBC 3.18 L (3.65-5.03) M/mm3 Hgb 9.4 L (10.1-14.3) gm/dl Hct 28.6 L (30.3-42.9) % Plt Count 195 (140-440) K/mm3 Comprehensive Metabolic Panel 01/25/20 Range/Units 04:00 Sodium 135 L (137-145) mmol/L Potassium 4.3 (3.6-5.0) mmol/L Chloride 99.7 (98-107) mmol/L Carbon Dioxide 22 (22-30) mmol/L BUN 49 H (7-17) mg/dL Creatinine 5.9 H (0.6-1.2) mg/dL Glucose 136 H (65-100) mg/dL Calcium 8.5 (8.4-10.2) mg/dL
--- NOTE | 2020-01-25 09:42 | Progress Note ---
Assessment and Plan Assessment and Plan Severe Renal Failure, possibly progressive CKD stage 5 secondary to HTN and DM, r/o obstruction S/P Hypertensive Emergency Hypertension Diabetes mellitus Plan: -Cr slightly better, monitor. -States was on hemodialysis for 2 weeks in 2017 -On Bicitra 30 TID for metabolic acidosis -Avoid nephrotoxic agents -Monitor I/O's -Renally dose medications -Obtain daily weights -Continue to monitor renal function closely, discussed with patient that given her advanced renal disease, risk factors and medical history, she will likely need hemodialysis in the very near future if renal function does not improve. Subjective Date of service: 01/25/20 Principal diagnosis: CKD stage V Interval history: Cr slightly down. Making some urine. Objective - Exam Narrative Exam: General appearance: well-developed, well-nourished EENT: ATNC, PERRL Neck: no JVD, no carotid bruit Respiratory: Present: Decreased Breath Sounds Cardiology: regular, S1S2 Gastrointestinal: normoactive bowel sounds Integumentary: no rash, warm and dry Neurologic: no focal deficit Psychiatric: cooperative - Vital Signs Vital signs: Vital Signs - 12hr 01/24/20 01/25/20 01/25/20 22:49 00:03 05:46 Temperature 98.0 F Pulse Rate 95 H 96 H 92 H Respiratory 18 Rate Blood Pressure 140/67 119/57 99/53 O2 Sat by Pulse 96 Oximetry 01/25/20 07:53 Temperature 99.8 F H Pulse Rate 91 H Respiratory 18 Rate Blood Pressure 110/50 O2 Sat by Pulse 95 Oximetry - Lab 01/25/20 04:00 01/25/20 14:35 Most recent lab results Calcium 8.5 mg/dL (8.4-10.2) 01/25/20 04:00 Phosphorus 3.20 mg/dL (2.5-4.5) 01/22/20 08:00 Urine Creatinine 115.9 mg/dL (0.1-20.0) H 01/22/20 01:00 Urine Sodium 84 mmol/L 01/21/20 06:40 Urine Total Protein 148 mg/dL (5-11.8) H 01/22/20 01:00 Medications & Allergies - Medications Allergies/Adverse Reactions: Allergies nifedipine Allergy (Verified 01/20/20 19:55) Swelling Home Medications: Home Medications Medication Instructions Recorded Confirmed Last Taken Type No Known Home Medications [No 01/20/20 01/20/20 Unknown History Reported Home Medications] Active Medications: Generic Name Dose Route Start Last Admin Trade Name Freq PRN Reason Stop Dose Admin Acetaminophen 650 mg 01/20/20 20:53 01/25/20 03:03 Tylenol PO 650 mg Q4H PRN Administration Pain MILD(1-3)/Fever >100.5/SWENSON Albuterol 2.5 mg 01/20/20 20:53 Proventil IH Q4HRT PRN Shortness Of Breath Aspirin 81 mg 01/23/20 14:00 01/24/20 10:05 Halfprin Ec PO 81 mg QDAY GERONIMO Administration Carvedilol 6.25 mg 01/23/20 14:00 01/24/20 22:49 Coreg PO 6.25 mg BID GERONIMO Administration Citric Acid/Sodium Citrate 30 ml 01/22/20 14:00 01/24/20 22:50 Bicitra PO 30 ml TID GERONIMO Administration Dextrose 50 ml 01/21/20 16:48 D50w (25gm) Syringe IV Q30MIN PRN Hypoglycemia Protocol Furosemide 20 mg 01/23/20 15:00 01/25/20 05:46 Lasix IV Not Given DAILY@0600 [facility] Heparin Sodium (Porcine) 5,000 unit 01/21/20 22:00 01/24/20 22:51 Heparin SUB-Q 5,000 unit Q12HR GERONIMO Administration Milrinone Lactate/Dextrose 20 mg in 100 mls @ 9.169 mls/hr 01/23/20 20:00 01/25/20 02:44 Milrinone-D5w 20 Mg/100 Ml IV 01/26/20 19:59 0.375 mcg/kg/min TITR GERONIMO 9.169 mls/hr Administration 0.375 MCG/KG/MIN Insulin Human Lispro 0 unit 01/21/20 17:00 01/24/20 23:06 Humalog SUB-Q 1 unit ACHS GERONIMO Administration Protocol Isosorbide Dinitrate 20 mg 01/23/20 14:00 01/25/20 05:46 Isordil PO Not Given Q8HR GERONIMO Ondansetron HCl 4 mg 01/20/20 20:53 01/23/20 03:23 Zofran IV 4 mg Q8H PRN Administration Nausea And Vomiting Sodium Chloride 10 ml 01/20/20 22:00 01/24/20 22:50 Sodium Chloride Flush Syringe 10 Ml IV 10 ml BID GERONIMO Administration Sodium Chloride 10 ml 01/20/20 20:53 Sodium Chloride Flush Syringe 10 Ml IV PRN PRN LINE FLUSH
[2020-01-25] MEDS: INSULIN LISPRO 100 UNIT/ML VIAL 3 mL SUB-Q SCH ×3 (10:22→17:22)
[2020-01-25] MEDS: ASPIRIN EC 81 MG TAB PO SCH (10:28)
[2020-01-25] MEDS: carvediloL 6.25 MG TAB PO SCH (10:28)
[2020-01-25] MEDS: HEPARIN 5,000 UNIT/1 ML VIAL SUB-Q SCH (10:29)
--- NOTE | 2020-01-25 13:31 | Progress Note ---
Assessment and Plan Assessment and plan: 64 YO Female with HTN, MS, DM, CKD presented on 01/19 with complaint of "feeling sick" over the past 4 days and feeding "being smothered". Patient was found to have hypertensive emergency with a blood pressure of 193/117, severe renal disease with a creatinine of 6 and metabolic acidosis. Nephrology team consulted in ED. Patient's TTE shows severe dilated cardiomyopathy with a reduced ejection fraction of 15 to 20%, her BNP is 38,886 therefore she was transferred to telemetry floor and started on a milrinone drip along with 20 mg of IV Lasix daily. Patient's creatinine increased today from 5.5 to 5.7. She had slight improvement to her creatinine from 6 to 5.5 after the initiation of IV fluids however this was stopped because of patient reporting being smothered during sleep. Also cardiology was consulted today who started her on aspirin, beta-alex and isosorbide dinitrate after her echocardiogram was reviewed. Her chest x-ray was also reviewed which shows pulmonary edema. 01/23: Echocardiogram reviewed yesterday shows ejection fraction of 10 to 15% discussed with communications electrician supervisor. Milrinone drip initiated in addition to Lasix. Labs today still pending. Unfortunately strict I's and O's has not been observed discussed with nursing staff. Qa Tester informed. Patient has significant pulmonary edema on chest x-ray as we reviewed by me. Clinically she is improving. I discussed her clinical results with her she verbalized understanding. 01/24: Continue supportive care. Patient with pain in weakness in bilateral lower extremity. Will discuss with cardiology. Check electrolytes noted to be intact. Await lab studies with this morning to ensure renal function improving. We will also obtain physical therapy evaluation and treat. Cardiology plans for cardiac catheterization considering patient's renal function this may need to be an outpatient procedure at the time that the renal function is improved. Acute HFrEF (heart failure with reduced ejection fraction) Current Visit: Yes Status: Acute Plan to address problem: Severe dilated cardiomyopathy with systolic heart failure 01/20 TTE shows severely dilated LV, mild to moderate LVH, global LV systolic function is severely decreased, estimated ejection fraction is 15 to 20%, left atrium is moderately dilated, moderate to severe MR, mild TR, evidence of moderate pulmonary hypertension with RVSP calculated at 48 mmHg. 01/22 initiated on aspirin, beta-alex and isosorbide dinitrate and IV Lasix Cardiology consulted, appreciate recommendations 01/22 initiated on milrinone drip and transferred to telemetry Daily weights Strict intake and output Remote telemetry Severe nonischemic dilated cardiomyopathy Continue cardiac work-up. Will need close follow-up with communications electrician supervisor patient verbalized understanding. chronic progressive renal failure, stage 4 (severe) Current Visit: Yes Status: Acute Plan to address problem: Per nephrology patient is in severe renal failure possibly progressive CKD stage V secondary to HTN and DM Admitting creatinine 6 01/21 creatinine 5.5 s/p IVF Nephrology consulted in the ED Renal ultrasound pending Per nephrology: Patient last saw receiving manager in May and told her creatinine was in the 3 range, states she had dialysis in 2016 for 2 weeks Started on gentle IV hydration, which was discontinued on 01/21 Avoid nephrotoxic medications Strict intake and output Daily weights 01/20 calculated FENa from urine studies is greater than 3%, consistent with prerenal cause 01/22 creatinine 5.7 01/22 nephrology has signed off and recommends outpatient follow-up in 1 to 2 weeks of discharge Hypertensive emergency Current Visit: Yes Status: Acute Plan to address problem: Presented to the ED with a blood pressure of 193/117 Blood pressure monitor per protocol 01/20 started on beta-alex 01/21 given complaints of feeling "strangled when laying down" she was started on hydralazine 50 every 8, discontinued on 01/22 01/21 echocardiogram ordered given history of MS which shows severely dilated cardiomyopathy She was initiated on aspirin, beta-alex increased and isosorbide nitrate started Diabetes mellitus Current Visit: Yes Status: Acute Plan to address problem: SSI CC cardiac renal diet Accu-Cheks AC at bedtime 01/20 Hemoglobin A1c 6.2 Metabolic acidosis Current Visit: Yes Status: Acute Plan to address problem: CO2 20, 01/21 CO2 16 Gentle IV hydration, DC 01/21 Trend BMP Started on Bicitra 30 TID for metabolic acidosis by nephrology on 01/21 DVT prophylaxis Current Visit: Yes Status: Acute Plan to address problem: SCDs to bilateral lower extremities while in bed Heparin subcu History Interval history: Patient seen and examined no new complaints. Complains of pain on bilateral lower extremity. Hospitalist Physical - Physical exam Narrative exam: VITAL SIGNS: Reviewed. GENERAL: The patient appears normally developed, Vital signs as documented. HEAD: No signs of head trauma. EYES: Pupils are equal. Extraocular motions intact. EARS: Hearing grossly intact. MOUTH: Oropharynx is normal. NECK: No adenopathy, no JVD. CHEST: Chest with clear breath sounds bilaterally. No wheezes, rales, or rhonchi. CARDIAC: Regular rate and rhythm. S1 and S2, without murmurs, gallops, or rubs. VASCULAR: No Edema. Peripheral pulses normal and equal in all extremities. ABDOMEN: Soft, non tender and non distended. No rebound or guarding, and no masses palpated. Bowel Sounds normal. MUSCULOSKELETAL: Good range of motion of all major joints. Extremities without clubbing, cyanosis or edema. NEUROLOGIC EXAM: Alert and oriented x 3 No focal sensory or strength deficits. Speech normal. Follows commands. PSYCHIATRIC: Mood normal. SKIN: detail exam as documented in skin assessment - Constitutional Vitals: Temp Pulse Resp BP Pulse Ox 99.7 F H 93 H 18 125/73 97 01/25/20 11:24 01/25/20 11:24 01/25/20 11:24 01/25/20 11:24 01/25/20 11:24 General appearance: Present: no acute distress Results - Labs CBC & Chem 7: 01/25/20 04:00 01/25/20 04:00 Labs: Laboratory Last Values WBC 7.7 K/mm3 (4.5-11.0) 01/25/20 04:00 RBC 3.18 M/mm3 (3.65-5.03) L 01/25/20 04:00 Hgb 9.4 gm/dl (10.1-14.3) L 01/25/20 04:00 Hct 28.6 % (30.3-42.9) L 01/25/20 04:00 MCV 90 fl (79-97) 01/25/20 04:00 MCH 29 pg (28-32) 01/25/20 04:00 MCHC 33 % (30-34) 01/25/20 04:00 RDW 15.2 % (13.2-15.2) 01/25/20 04:00 Plt Count 195 K/mm3 (140-440) 01/25/20 04:00 Sodium 135 mmol/L (137-145) L 01/25/20 04:00 Potassium 4.3 mmol/L (3.6-5.0) 01/25/20 04:00 Chloride 99.7 mmol/L (98-107) 01/25/20 04:00 Carbon Dioxide 22 mmol/L (22-30) 01/25/20 04:00 Anion Gap 18 mmol/L 01/25/20 04:00 BUN 49 mg/dL (7-17) H 01/25/20 04:00 Creatinine 5.9 mg/dL (0.6-1.2) H 01/25/20 04:00 Estimated GFR 9 ml/min 01/25/20 04:00 BUN/Creatinine Ratio 8 % 01/25/20 04:00 Glucose 136 mg/dL (65-100) H 01/25/20 04:00 POC Glucose 175 mg/dL (70-105) H 01/25/20 11:39 Hemoglobin A1c 6.2 % (4-6) H 01/21/20 20:43 Calcium 8.5 mg/dL (8.4-10.2) 01/25/20 04:00 Phosphorus 3.20 mg/dL (2.5-4.5) 01/22/20 08:00 NT-Pro-B Natriuret Pep 15609 pg/mL (0-900) H 01/22/20 08:00 PTH Intact 1332 pg/mL (15-65) H 01/22/20 08:00 Urine Eosinophils >5% (None Seen) 01/22/20 01:00 Urine Creatinine 115.9 mg/dL (0.1-20.0) H 01/22/20 01:00 Protein/Creatinin Ratio 1.28 01/22/20 01:00 Urine Sodium 84 mmol/L 01/21/20 06:40 Urine Total Protein 148 mg/dL (5-11.8) H 01/22/20 01:00 Hepatitis A IgM Ab Non-reactive (NonReactive) 01/22/20 08:00 Hep Bs Antigen Non-reactive (Negative) 01/22/20 08:00 Hep B Core IgM Ab Non-reactive (NonReactive) 01/22/20 08:00 Hepatitis C Antibody Non-reactive (NonReactive) 01/22/20 08:00 - Diagnostic Impressions Diagnostic Impressions: Echocardiogram 01/22/20 11:18 Transthoracic Echocardiogram Indication: SOB BP: 152/105 HR: 69 Conclusions *The left ventricular chamber size is severely dilated. *Mild to moderate concentric left ventricular hypertrophy is observed. *Global left ventricular systolic function is severely decreased. *The estimated ejection fraction is 15-20%. *The left atrium is moderately dilated. *There is moderate to severe mitral regurgitation. *There is mild tricuspid regurgitation. *There is evidence of moderate pulmonary hypertension. *The right ventricular systolic pressure is calculated at 48 mmHg. Findings Left Ventricle: The left ventricular chamber size is severely dilated. Mild to moderate concentric left ventricular hypertrophy is observed. Global left ventricular systolic function is severely decreased. The estimated ejection fraction is 15-20%. Left Atrium: The left atrium is moderately dilated. Right Ventricle: The right ventricular cavity size is normal. The right ventricular global systolic function is normal. Right Atrium: The right atrial cavity size is normal. Aortic Valve: The aortic valve is trileaflet. The aortic valve leaflets are moderately thickened. There is trace of aortic regurgitation. There is no evidence of aortic stenosis. Mitral Valve: The mitral valve leaflets are mildly thickened. There is moderate to severe mitral regurgitation. There is no evidence of mitral stenosis. Tricuspid Valve: There is mild tricuspid regurgitation. The right ventricular systolic pressure is calculated at 48 mmHg. There is evidence of moderate pulmonary hypertension. Pulmonic Valve: There is mild pulmonic regurgitation. Pericardium: There is no pericardial effusion. Aorta: There is no dilatation of the ascending aorta. There is no dilatation of the aortic root. Venous: The inferior vena cava appears normal in size. Measurements Chambers 2D Name Value Normal Range IVSd (2D) 1.12 cm (0.6 - 1.1) LVPWd (2D) 1.17 cm (0.6 - 1.1) LVIDd (2D) 5.92 cm (3.7 - 5.6) LVIDs (2D) 4.89 cm (2 - 3.8) LV FS (2D) 17.48 % - EF Teichholz (2D) 35.83 % - Ao root diameter (2D) 3.05 cm (2 - 3.7) Volumes/Mass Name Value Normal Range LA ESV SP 4CH (A/L) 60.53 ml - LA ESV SP 2CH (A/L) 81.81 ml - LA ESV BP (A/L) 73.51 ml - LA ESV BP (A/L) index 39.31 ml/m2 - LA ESV SP 4CH (MOD) 57.3 ml - LA ESV SP 2CH (MOD) 76.37 ml - LA ESV BP (MOD) 68.95 ml - LA ESV BP (MOD) index 36.87 ml/m2 - Diastolic/Systolic Function Name Value Normal Range MV E-wave Vmax 0.9 m/sec - MV deceleration time 181.16 msec - MV A-wave Vmax 0.82 m/sec - MV E:A ratio 1.09 ratio - Aortic Valve Name Value Normal Range AV Vmax 1.5 m/sec - AV VTI 26.98 cm - AV peak gradient 8.99 mmHg - AV mean gradient 4.78 mmHg - LVOT diameter 2.01 cm - LVOT Vmax 0.78 m/sec - LVOT VTI 15.26 cm - LVOT peak gradient 2.43 mmHg - LVOT mean gradient 1.57 mmHg - SV LVOT 48.18 ml - ANABELLA (continuity Vmax) 1.64 cm2 - ANABELLA (continuity VTI) 1.79 cm2 - Mitral Valve Name Value Normal Range MR Vmax 5.58 m/sec - MR VTI 196.54 cm - Tricuspid Valve Name Value Normal Range TR Vmax 3.18 m/sec - TR peak gradient 40 mmHg - RAP 3 mmHg - RVSP 48 mmHg - IVC diameter 2.12 cm (1.2 - 2.3) Pulmonic Valve/Qp:Qs Name Value Normal Range PV Vmax 0.77 m/sec - PV peak gradient 2.35 mmHg - NE end-diastolic Vmax 1.29 m/sec - PV acceleration time 87.54 msec - Thayer/IV: Voiding Method Toilet IV Catheter Type [Left Hand] INT / Saline Lock Active Medications - Current Medications Current Medications: Generic Name Dose Route Start Last Admin Trade Name Freq PRN Reason Stop Dose Admin Acetaminophen 650 mg 01/20/20 20:53 01/25/20 03:03 Tylenol PO 650 mg Q4H PRN Administration Pain MILD(1-3)/Fever >100.5/SWENSON Albuterol 2.5 mg 01/20/20 20:53 Proventil IH Q4HRT PRN Shortness Of Breath Aspirin 81 mg 01/23/20 14:00 01/25/20 10:28 Halfprin Ec PO 81 mg QDAY GERONIMO Administration Carvedilol 6.25 mg 01/23/20 14:00 01/25/20 10:28 Coreg PO 6.25 mg BID GERONIMO Administration Citric Acid/Sodium Citrate 30 ml 01/22/20 14:00 01/25/20 08:00 Bicitra PO 30 ml TID GERONIMO Administration Dextrose 50 ml 01/21/20 16:48 D50w (25gm) Syringe IV Q30MIN PRN Hypoglycemia Protocol Furosemide 20 mg 01/23/20 15:00 01/25/20 05:46 Lasix IV Not Given DAILY@0600 [facility] Heparin Sodium (Porcine) 5,000 unit 01/21/20 22:00 01/25/20 10:29 Heparin SUB-Q 5,000 unit Q12HR [facility] Administration Milrinone Lactate/Dextrose 20 mg in 100 mls @ 9.169 mls/hr 01/23/20 20:00 1 03/26/19 12:38 Milrinone-D5w 20 Mg/100 Ml IV 01/26/20 19:59 0.375 mcg/kg/min TITR GERONIMO 9.169 mls/hr Administration 0.375 MCG/KG/MIN Insulin Human Lispro 0 unit 01/21/20 17:00 01/25/20 12:20 Humalog SUB-Q Not Given ACHS [facility] Protocol Isosorbide Dinitrate 20 mg 01/23/20 14:00 01/25/20 05:46 Isordil PO Not Given Q8HR [facility] Ondansetron HCl 4 mg 01/20/20 20:53 01/23/20 03:23 Zofran IV 4 mg Q8H PRN Administration Nausea And Vomiting Sodium Chloride 10 ml 01/20/20 22:00 01/25/20 10:29 Sodium Chloride Flush Syringe 10 Ml IV 10 ml BID GERONIMO Administration Sodium Chloride 10 ml 01/20/20 20:53 Sodium Chloride Flush Syringe 10 Ml IV PRN PRN LINE FLUSH
[2020-01-25 15:35] LABS: Calcium 8.3 mg/dL (8.4-10.2)
[2020-01-25 16:33] VITALS: BP 137/68
[2020-01-27 11:14] LABS: BUN/Creatinine Ratio 7; Blood Urea Nitrogen 44 mg/dL (7-17)
[2020-01-27 11:15] LABS: Alanine Aminotransferase 45 units/L (7-56); Calcium 9.7 mg/dL (8.4-10.2); Creatine Kinase MB 4.5 ng/mL (0.0-4.0)
[2020-01-27 11:16] LABS: Albumin 4.3 g/dL (3.9-5); Hemolysis Index 0
== END 2020-01-25 20:06 | disposition left against medical advice (07) | DRG 682 ==
LOC: ED 08:38 → 3A 15:35 → OBSVTOIN 01-21 15:35 → 4A 01-23 18:44
PROVIDERS: ADMIT Internal Medicine; ATTEND Internal Medicine
DX: N17.0 Acute kidney failure with tubular necrosis (principal); I50.21 Acute systolic (congestive) heart failure; I13.0 Hypertensive heart and chronic kidney disease with heart failure and stage 1 through stage 4 chronic kidney disease, or unspecified chronic kidney disease; I16.1 Hypertensive emergency; E87.2 Acidosis; I42.0 Dilated cardiomyopathy; N18.4 Chronic kidney disease, stage 4 (severe); Z53.29 Procedure and treatment not carried out because of patient's decision for other reasons; Z88.8 Allergy status to other drugs, medicaments and biological substances; I25.2 Old myocardial infarction; E11.22 Type 2 diabetes mellitus with diabetic chronic kidney disease; Z82.49 Family history of ischemic heart disease and other diseases of the circulatory system
CPT/HCPCS: 36415; 71046; 76770; 80048; 80053; 80074; 82553; 82570; 82962; 83036; 83735; 83880; 83970; 84100; 84156; 84300; 84443; 85025; 85027; 85610; 89050; 93005; 93306; 96374; 96375; G0378; J1644; J1940; J2260; J2405; J7030